=== PATIENT | male | born 1965 | race Caucasian/White ===

== ENCOUNTER 2018-02-27 13:02 | Inpatient (IN) | payer OTHER ==
[2018-02-27] VITALS (12 sets, daily range): BP systolic 117–137; BP diastolic 61–96
[~2018-02-27] VITALS: Ht 170.2 cm; Wt 81.0 kg
--- NOTE | 2018-02-27 13:08 | Emergency Room Report ---
History of Present Illness General Chief Complaint: Altered Level of Consciousness Source: Patient, EMS (Bony Aguilar MD) Present Illness HPI Patient is a 52-year-old male brought in by EMS after increased altered level consciousness. Patient reportedly had prior history of CVA. The patient was noted to be increasingly confused. The patient was brought in by EMS. He reports having increased generalized body aches and weakness. The patient is brought in from home after his called EMS (Bony Aguilar MD) Allergies: Coded Allergies: No Known Allergies (Unverified , 02/27/18) Patient History Past Medical History: see triage record Reviewed Nursing Documentation: PMH: Agreed; PSxH: Agreed (Bony Aguilar MD) Nursing Documentation-PMH Hx Diabetes: Yes (Bony Aguilar MD) Review of Systems All Other Systems: limited - by altered mental status (Bony Aguilar MD) Physical Exam Vital Signs Date Time Temp Pulse Resp B/P (MAP) Pulse Ox O2 Delivery O2 Flow Rate FiO2 02/27/18 12:56 98.1 110 18 110/60 98 Room Air Sp02 EP Interpretation: reviewed, normal General Appearance: alert, lethargic, Chronically Ill Head: atraumatic ENT: normal ENT inspection, hearing grossly normal, normal voice Neck: normal inspection, full range of motion, supple, no bony tend Respiratory: normal inspection, lungs clear, normal breath sounds, no respiratory distress, no retraction, no wheezing Gastrointestinal: normal inspection, normal bowel sounds, non tender, soft, no guarding, no hernia Genitourinary: no CVA tenderness Musculoskeletal: normal inspection, back normal, normal range of motion Neurologic: normal inspection, alert, responsive, speech normal, motor weakness , other - hippus Psychiatric: mood/affect normal Skin: normal inspection, normal color, no rash (Bony Aguilar MD) Procedures Critical Care Time Critical Care Time 70 minutes for multiple re-evaluations, critical findings concerning for end organ injury and possible life-threatening process not including any procedural time (Evonne Bermeo DO) Medical Decision Making Diagnostic Impression: Primary Impression: Altered level of consciousness Additional Impressions: Metabolic acidosis Pancreatitis ER Course patient presented for altered mental status. Differential diagnosis included but was not limited to ischemic stroke, subarachnoid hemorrhage, hypoglycemia, spinal cord injury, neurodegenerative disorder, urinary tract infection, hypoxemia.Because of complexity of patient's case laboratory testing and imaging studies were ordered. (Bony Aguilar MD) ER Course Please refer to the initial note for the initial exam and presentation Patient presents extremely ill Multiple critical findings including severe acidosis Glucose is elevated with concerns of DKA Patient's lipase levels also significantly elevated Further hydration is initiated CT head does not show any acute disease CT abdomen pelvis also does not show any acute disease Patient requiring higher level of care and ICU admission Multispecialty consultation is made and patient admitted in critical condition Labs Test 02/27/18 13:20 02/27/18 14:01 02/27/18 15:15 02/27/18 15:20 White Blood Count 7.5 K/UL (4.8-10.8) Red Blood Count 5.11 M/UL (4.70-6.10) Hemoglobin 16.0 G/DL (14.2-18.0) Hematocrit 47.6 % (42.0-52.0) Mean Corpuscular Volume 93 FL (80-99) Mean Corpuscular Hemoglobin 31.3 PG (27.0-31.0) Mean Corpuscular Hemoglobin Concent 33.6 G/DL (32.0-36.0) Red Cell Distribution Width 12.8 % (11.6-14.8) Platelet Count 91 K/UL (150-450) Mean Platelet Volume 8.4 FL (6.5-10.1) Neutrophils (%) (Auto) % (45.0-75.0) Lymphocytes (%) (Auto) % (20.0-45.0) Monocytes (%) (Auto) % (1.0-10.0) Eosinophils (%) (Auto) % (0.0-3.0) Basophils (%) (Auto) % (0.0-2.0) Differential Total Cells Counted 100 Neutrophils % (Manual) 74 % (45-75) Lymphocytes % (Manual) 11 % (20-45) Monocytes % (Manual) 15 % (1-10) Eosinophils % (Manual) 0 % (0-3) Basophils % (Manual) 0 % (0-2) Band Neutrophils 0 % (0-8) Platelet Estimate Decreased Platelet Morphology Normal Red Blood Cell Morphology Normal Prothrombin Time 11.2 SEC (9.30-11.50) Prothromb Time International Ratio 1.1 (0.9-1.1) Activated Partial Thromboplast Time 30 SEC (23-33) Sodium Level 125 MMOL/L (136-145) Potassium Level 4.9 MMOL/L (3.5-5.1) Chloride Level 88 MMOL/L (98-107) Carbon Dioxide Level 8 MMOL/L (21-32) Anion Gap 29 mmol/L (5-15) Blood Urea Nitrogen 52 mg/dL (7-18) Creatinine 1.6 MG/DL (0.55-1.30) Estimat Glomerular Filtration Rate 45.4 mL/min (>60) Glucose Level 319 MG/DL (74-106) Calcium Level 8.7 MG/DL (8.5-10.1) Total Bilirubin 1.5 MG/DL (0.2-1.0) Direct Bilirubin 0.3 MG/DL (0.0-0.3) Aspartate Amino Transf (AST/SGOT) 180 U/L (15-37) Alanine Aminotransferase (ALT/SGPT) 82 U/L (12-78) Alkaline Phosphatase 137 U/L (46-116) Ammonia < 10 umol/L (11-32) Troponin I 0.020 ng/mL (0.000-0.056) Total Protein 9.1 G/DL (6.4-8.2) Albumin 3.5 G/DL (3.4-5.0) Globulin 5.6 g/dL Albumin/Globulin Ratio 0.6 (1.0-2.7) Lipase > 2000 U/L (73-393) Thyroid Stimulating Hormone (TSH) 0.478 uiU/mL (0.358-3.740) Serum Alcohol < 3 mg/dL Arterial Blood pH 7.246 (7.350-7.450) Arterial Blood Partial Pressure CO2 17.3 mmHg (35.0-45.0) Arterial Blood Partial Pressure O2 108.2 mmHg (75.0-100.0) Arterial Blood HCO3 7.3 mmol/L (22.0-26.0) Arterial Blood Oxygen Saturation 97.9 % (95-100) Arterial Blood Base Excess -17.3 (-2-2) Andrew Test Positive Lactic Acid Level 0.70 mmol/L (0.4-2.0) Urine Color Yellow Urine Appearance Clear Urine pH 5 (4.5-8.0) Urine Specific [place] 1.020 (1.005-1.035) Urine Protein 3+ (NEGATIVE) Urine Glucose (UA) 4+ (NEGATIVE) Urine Ketones 4+ (NEGATIVE) Urine Blood 5+ (NEGATIVE) Urine Nitrite Negative (NEGATIVE) Urine Bilirubin Negative (NEGATIVE) Urine Urobilinogen 1 MG/DL (0.0-1.0) Urine Leukocyte Esterase Negative (NEGATIVE) Urine RBC 5-10 /HPF (0 - 0) Urine WBC 2-4 /HPF (0 - 0) Urine Squamous Epithelial Cells None /LPF (NONE/OCC) Urine Amorphous Sediment Few /LPF (NONE) Urine Bacteria Moderate /HPF (NONE) Urine Yeast Few /HPF (NONE) (Evonne Bermeo DO) Rhythm Strip Diag. Results EP Interpretation: yes Rate: 110 Rhythm: no PVC's, no ectopy, other - Sinus tach (Evonne Bermeo DO) Chest X-Ray Diagnostic Results Chest X-Ray Diagnostic Results : Chest X-Ray Ordered: Yes # of Views/Limited/Complete: 1 View Indication: Chest Pain EP Interpretation: Yes Interpretation: no consolidation, no effusion, no pneumothorax Impression: No acute disease Electronically Signed by: Evonne Bermeo DO (Evonne Bermeo DO) CT/MRI/US Diagnostic Results CT/MRI/US Diagnostic Results : Impression CT abdomen pelvisImpression: Very questionable slight prominence and indistinctness to the pancreatic head neck junction; of doubtful significance but could represent very early pancreatitis if real. Correlate with laboratory findings Enlarged fatty liver Equivocal mild bladder wall thickening, probably an artifact of under distention , could indicate cystitis if real. Correlate with clinical and laboratory findings Limited assessment of the GI tract, due to lack of enteric contrast administration Colonic diverticulosis Multiple ventral hernias, mostly containing fat, one containing the edge of the transverse colon. No evidence of obstruction or strangulation Incidental finding of splenic capsular calcifications, small fat-containing umbilical and right inguinal hernia CT headImpression: Cerebral volume loss, mild but somewhat advanced for patient' s age. Negative for acute intracranial bleed or mass effect (Evonne Bermeo DO) Last Vital Signs Date Time Temp Pulse Resp B/P (MAP) Pulse Ox O2 Delivery O2 Flow Rate FiO2 02/27/18 12:56 98.1 110 18 110/60 98 Room Air (Bony Aguilar MD) Status: improved (Evonne Bermeo DO) Disposition: ADMITTED INPATIENT Condition: Critical Bony Aguilar MD Feb 27, 2018 13:08 Evonne Bermeo DO Feb 27, 2018 17:48
[2018-02-27 13:44] LABS: HEMATOCRIT 47.6 % (42.0-52.0); MEAN CORPUSCULAR VOLUME 93 FL (80-99); PLATELET COUNT 91 K/UL (150-450); RED BLOOD COUNT 5.11 M/UL (4.70-6.10); RED CELL DISTRIBUTION WIDTH 12.8 % (11.6-14.8); WHITE BLOOD COUNT 7.5 K/UL (4.8-10.8)
--- NOTE | 2018-02-27 13:50 | Diagnostic Imaging Report ---
Indications: Altered level of consciousness Technique: Spiral acquisitions obtained through the brain. Angled axial and coronal 5 x 5 mm slices were reconstructed. Total dose length product 1432.39 mGycm. CTDI vol(s) 70.38 mGy. Dose reduction achieved using automated exposure control Comparison: None. Findings: There is age-related enlargement of the ventricles and to a lesser extent the extra-axial CSF spaces, somewhat advanced for age. No acute intercranial hemorrhage nor edema. No mass effect nor midline shift. Normal randolph-white differentiation. Intact calvarium. Visualized orbits and sinuses are unremarkable. Impression: Cerebral volume loss, mild but somewhat advanced for patient's age. Negative for acute intracranial bleed or mass effect The CT scanner at [facility] is accredited by the [employer] and the scans are performed using protocols designed to limit radiation exposure to as low as reasonably achievable to attain images of sufficient resolution adequate for diagnostic evaluation.
[2018-02-27 13:51] LABS: INR 1.1 (0.9-1.1)
[2018-02-27 13:55] LABS: AMMONIA < 10 umol/L (11-32)
[2018-02-27 14:10] LABS: ALANINE AMINOTRANSFERASE 82 U/L (12-78); ALBUMIN 3.5 G/DL (3.4-5.0); ALBUMIN/GLOBULIN RATIO 0.6 (1.0-2.7); ALKALINE PHOSPHATASE 137 U/L (46-116); ASPARTATE AMINO TRANSFERASE 180 U/L (15-37); BILIRUBIN,TOTAL 1.5 MG/DL (0.2-1.0); BLOOD UREA NITROGEN 52 mg/dL (7-18); CALCIUM 8.7 MG/DL (8.5-10.1); CHLORIDE 88 MMOL/L (98-107); CREATININE 1.6 MG/DL (0.55-1.30)
[2018-02-27 14:20] LABS: ANION GAP 29 mmol/L (5-15); CARBON DIOXIDE 8 MMOL/L (21-32); POTASSIUM 4.9 MMOL/L (3.5-5.1); SODIUM 125 MMOL/L (136-145)
[2018-02-27 14:23] LABS: BILIRUBIN,DIRECT 0.3 MG/DL (0.0-0.3)
[2018-02-27] MEDS ORDERED: Insulin Human Regular 100units/ml 3ml IV ONE (15:00)
[2018-02-27 15:49] LABS: APPEARANCE,URINE CLEAR; BILIRUBIN, URINE NEGATIVE (NEGATIVE); GLUCOSE, URINE (UA) 4+ (NEGATIVE); KETONES,URINE 4+ (NEGATIVE); LEUKOCYTE ESTERASE ,URINE NEGATIVE (NEGATIVE); NITRITE,URINE NEGATIVE (NEGATIVE); PH,URINE 5 (4.5-8.0); PROTEIN,URINE 3+ (NEGATIVE); UROBILINOGEN,URINE 1 MG/DL (0.0-1.0)
[2018-02-27 15:57] LABS: COLOR,URINE YELLOW
[2018-02-27] MEDS ORDERED: UNOBMED (15:57)
--- NOTE | 2018-02-27 16:18 | Diagnostic Imaging Report ---
Indication: Abdominal pain Technique: Spiral acquisitions obtained through the abdomen and pelvis. No oral contrast utilized, per emergency room physician request No IV contrast utilized, per referring physician request.. Multiplanar reconstructions were generated. Total dose length product 1166 mGycm. CTDIvol(s) 14.59,14.12 mGy. Dose reduction achieved using automated exposure control Comparison: None Findings: Lack of enteric contrast limits assessment of the GI tract. The appendix is normal. There is colonic diverticulosis. No evidence of acute diverticulitis. No small bowel distention. There is a broad-based ventral hernia into which protrudes the edge of the transverse colon. No evidence of associated strangulation or obstruction. A 2 other ventral hernias containing only fat. There is also small fat-containing umbilical hernia. There is a small fat-containing right inguinal hernia. Lack of IV contrast limits assessment of the solid organs. The liver is diffusely hypoattenuating, consistent with fatty change. It is also enlarged. The gallbladder, bile ducts are unremarkable. There is equivocal slight prominence to the pancreatic neck junction and slight increased attenuation of the immediate peripancreatic fat. No focal pancreatic abnormality. There are splenic capsular calcifications. The adrenals, kidneys are unremarkable. No renal or ureteral calculi, hydronephrosis, or hydroureter. The prostate and seminal vesicles are unremarkable except for some prostatic calcifications. The bladder is equivocally mildly thick-walled, probably an artifact of underdistention. The included lung bases are clear. The bones are unremarkable. Impression: Very questionable slight prominence and indistinctness to the pancreatic head neck junction; of doubtful significance but could represent very early pancreatitis if real. Correlate with laboratory findings Enlarged fatty liver Equivocal mild bladder wall thickening, probably an artifact of under distention, could indicate cystitis if real. Correlate with clinical and laboratory findings Limited assessment of the GI tract, due to lack of enteric contrast administration Colonic diverticulosis Multiple ventral hernias, mostly containing fat, one containing the edge of the transverse colon. No evidence of obstruction or strangulation Incidental finding of splenic capsular calcifications, small fat-containing umbilical and right inguinal hernia The CT scanner at [facility] is accredited by the [employer] and the scans are performed using protocols designed to limit radiation exposure to as low as reasonably achievable to attain images of sufficient resolution adequate for diagnostic evaluation.
[2018-02-27] MEDS ORDERED: Thiamine 100mg tab ORAL SCH (17:45)
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
[2018-02-27] MEDS ORDERED: LORazepam Inj 2mg/ml 1ml IV PRN (18:00)
[2018-02-27] MEDS ORDERED: Morphine Sulfate 2mg/ml Inj IVP PRN ×2 (18:00)
[2018-02-27] MEDS ORDERED: Morphine Sulfate 4mg/ml Inj (IV/IM USE ONLY) IVP PRN (18:00)
--- NOTE | 2018-02-27 18:50 | Diagnostic Imaging Report ---
EXAM: XR Chest, 1 View CLINICAL HISTORY: SOB TECHNIQUE: Frontal view of the chest. COMPARISON: No relevant prior studies available. FINDINGS: Lungs: Unremarkable. No consolidation. Pleural space: Unremarkable. No pneumothorax. Heart: Unremarkable. No cardiomegaly. Mediastinum: Unremarkable. Bones/joints: Unremarkable. IMPRESSION: Normal chest x-ray.
[2018-02-27] MEDS: D5NS 1,000 ML IV SCH (20:00)
[2018-02-27] MEDS ORDERED: Insulin Human Regular 100units/ml 3ml IV PRN ×2 (20:00)
[2018-02-27] MEDS: Insulin Rate Change 1 Each MISC PRN (22:03)
[2018-02-28] VITALS (24 sets, daily range): BP systolic 113–159; BP diastolic 69–98
[2018-02-28] MEDS: Insulin Rate Change 1 Each MISC PRN ×3 (01:19→22:03)
[2018-02-28] MEDS: D5NS 1,000 ML IV SCH ×4 (02:43→23:09)
[2018-02-28 05:52] LABS: AMYLASE 69 U/L (25-115)
[2018-02-28 06:02] LABS: ALANINE AMINOTRANSFERASE 62 U/L (12-78); ALBUMIN 2.7 G/DL (3.4-5.0); ALBUMIN/GLOBULIN RATIO 0.5 (1.0-2.7); ALKALINE PHOSPHATASE 110 U/L (46-116); ANION GAP 19 mmol/L (5-15); ASPARTATE AMINO TRANSFERASE 120 U/L (15-37); BILIRUBIN,TOTAL 1.2 MG/DL (0.2-1.0); BLOOD UREA NITROGEN 33 mg/dL (7-18); CALCIUM 8.3 MG/DL (8.5-10.1); CARBON DIOXIDE 13 MMOL/L (21-32); CHLORIDE 102 MMOL/L (98-107); CREATININE 1.4 MG/DL (0.55-1.30); POTASSIUM 3.2 MMOL/L (3.5-5.1); SODIUM 134 MMOL/L (136-145)
[2018-02-28 06:06] LABS: BILIRUBIN,DIRECT 0.5 MG/DL (0.0-0.3)
[2018-02-28 06:34] LABS: HEMOGLOBIN 13.1 G/DL (14.2-18.0); MEAN CORPUSCULAR VOLUME 92 FL (80-99); PLATELET COUNT 84 K/UL (150-450); RED BLOOD COUNT 4.11 M/UL (4.70-6.10); RED CELL DISTRIBUTION WIDTH 13.2 % (11.6-14.8); WHITE BLOOD COUNT 7.3 K/UL (4.8-10.8)
[2018-02-28 06:48] LABS: HEMATOCRIT 39.9 % (42.0-52.0)
[2018-02-28] MEDS: Pantoprazole Inj IV SCH (08:04)
--- NOTE | 2018-02-28 12:29 | Diagnostic Imaging Report ---
EXAM: US Abdomen Complete CLINICAL HISTORY: Abdominal tenderness TECHNIQUE: Real-time ultrasound of the abdomen (complete) with image documentation. COMPARISON: No relevant prior studies available. FINDINGS: Limitations: The choral teacher had a technically difficult exam due to uncooperative and confused patient which was constantly moving, as well as diffuse bowel gas. Liver: Diffusely echogenic liver, suggesting fatty infiltration. Gallbladder: Unremarkable. No gallstones. No wall thickening. No pericholecystic fluid. Common bile duct: Common bile duct diameter 3.4 mm. No stones. No dilation. Pancreas: Unremarkable as visualized. Pancreatic body and tail are obscured by bowel gas. Kidneys: Right kidney length 9.6 cm. Left kidney length 10.4 cm. Normal cortical thickness. No visible parenchymal lesions. No visible stones. No hydronephrosis. Spleen: Spleen diameter of 8.8 cm. Aorta: Unremarkable. Visualized portions appear unremarkable without evidence of aneurysm. Inferior vena cava: Unremarkable. IMPRESSION: No acute findings. Diffusely echogenic liver, suggesting fatty infiltration.
--- NOTE | 2018-02-28 12:59 | History and Physical Report ---
DATE OF ADMISSION: 02/27/2018 REASON FOR ADMISSION: Diabetic ketoacidosis, pancreatitis. HISTORY OF PRESENT ILLNESS: This is a 52-year-old confused male, brought in with altered mental status. The patient with history of prior CVA. The patient unable to give much in the way of history, but noted to be in diabetic ketoacidosis as well as pancreatitis. The patient was now started on IV insulin, IV hydration, and NPO due to elevated lipase and amylase. PAST MEDICAL HISTORY: As above. MEDICATIONS: Reviewed. ALLERGIES: Reviewed. SOCIAL HISTORY: Not fully known due to the patient's altered status. PHYSICAL EXAMINATION: GENERAL: This is a well-developed male, confused. VITAL SIGNS: Otherwise, stable. Blood pressure 136/76, pulse 95, respirations 20, and saturations 97%. HEENT: Otherwise negative. NECK: Supple. LUNGS: Clear overall CARDIAC: slightly tachycardic ABDOMEN: Minimally tender in the epigastrium, otherwise negative. No distention. EXTREMITIES: No edema. LABORATORY DATA: Otherwise reviewed. BUN 33, creatinine 1.4. Liver enzymes slightly elevated. C-reactive protein 12.2. White cell count 7.3 and hematocrit 39. IMPRESSION: 1. Diabetic ketoacidosis. 2. Severe protein-calorie malnutrition. 3. Evidence of pancreatitis. 4. Acute on chronic encephalopathy, not fully clarified. 5. Probable sepsis. 6. Abnormal liver enzymes. RECOMMENDATION: NPO. IV hydration, IV insulin, IV fluids, IV antibiotics, abdominal ultrasound. Monitor clinically. Monitor mental status and consider further evaluation and recommendation. Pending re-evaluation. Dontrell Rouse M.D. DR: MARCY JOB#: [id number] CC:
--- NOTE | 2018-02-28 15:48 | General Surgery Progress Note ---
General Surgery-Progress Note Subjective Symptoms: improved, pain absent Additional Comments no acute events. seems improved today Objective Last 24 Hour Vital Signs Date Time Temp Pulse Resp B/P (MAP) Pulse Ox O2 Delivery O2 Flow Rate FiO2 02/28/18 13:00 107 15 118/98 (105) 99 02/28/18 12:00 97.6 112 21 135/74 (94) 99 02/28/18 12:00 Room Air 02/28/18 11:00 111 15 130/80 (97) 100 02/28/18 10:00 112 17 133/80 (97) 100 02/28/18 09:00 97.8 95 20 136/76 (96) 97 02/28/18 08:00 Room Air 02/28/18 08:00 102 15 127/82 (97) 100 02/28/18 08:00 93 02/28/18 07:00 100 17 138/73 (94) 99 02/28/18 06:00 99 16 139/73 (95) 99 02/28/18 05:00 99 16 141/77 (98) 99 02/28/18 04:00 101 02/28/18 04:00 97.4 101 20 130/79 (96) 100 02/28/18 04:00 Room Air 02/28/18 03:00 102 14 141/77 (98) 100 02/28/18 02:00 106 18 130/88 (102) 100 02/28/18 01:00 109 18 115/76 (89) 100 02/28/18 00:00 Room Air 02/28/18 00:00 97.7 106 17 113/74 (87) 100 02/28/18 00:00 105 02/27/18 23:00 111 20 117/61 (79) 100 02/27/18 22:00 113 20 120/79 (93) 98 02/27/18 21:00 108 17 119/67 (84) 100 02/27/18 20:00 103 17 120/88 (99) 100 02/27/18 20:00 103 02/27/18 20:00 Room Air 02/27/18 19:10 Nasal Cannula 2.0 02/27/18 19:00 97.7 102 132/80 (97) 02/27/18 18:40 97.6 108 135/74 (94) 02/27/18 18:00 98 15 131/64 100 02/27/18 18:00 98.0 98 15 131/64 100 Room Air 02/27/18 17:00 112 24 123/96 97 Room Air 02/27/18 16:07 110 23 137/89 100 Room Air I&O Intake and Output 02/27/18 02/28/18 19:00 07:00 Intake Total 2000 ml 1657.62 ml Output Total 890 ml Balance 2000 ml 767.62 ml Intake Oral 0 ml IV Total 2000 ml 1657.62 ml Output Urine Total 890 ml # Voids 2 Dressing: other Wound: other Drains: other Cardiovascular: RSR Respiratory: clear Abdomen: soft, flat, non-tender, present bowel sounds Extremities: no tenderness, no cyanosis Laboratory Tests Test 02/28/18 05:00 02/28/18 06:45 White Blood Count 7.3 K/UL (4.8-10.8) Red Blood Count 4.11 M/UL (4.70-6.10) L Hemoglobin 13.1 G/DL (14.2-18.0) L Hematocrit 39.9 % (42.0-52.0) L Mean Corpuscular Volume 92 FL (80-99) Mean Corpuscular Hemoglobin 31.9 PG (27.0-31.0) H Mean Corpuscular Hemoglobin Concent 34.8 G/DL (32.0-36.0) Red Cell Distribution Width 13.2 % (11.6-14.8) Platelet Count 84 K/UL (150-450) L Mean Platelet Volume 6.7 FL (6.5-10.1) Neutrophils (%) (Auto) % (45.0-75.0) Lymphocytes (%) (Auto) % (20.0-45.0) Monocytes (%) (Auto) % (1.0-10.0) Eosinophils (%) (Auto) % (0.0-3.0) Basophils (%) (Auto) % (0.0-2.0) Differential Total Cells Counted 100 Neutrophils % (Manual) 72 % (45-75) Lymphocytes % (Manual) 12 % (20-45) L Monocytes % (Manual) 13 % (1-10) H Eosinophils % (Manual) 0 % (0-3) Basophils % (Manual) 0 % (0-2) Band Neutrophils 3 % (0-8) Platelet Estimate Decreased L Platelet Morphology Normal Red Blood Cell Morphology Normal Erythrocyte Sedimentation Rate 41 MM/HR (0-20) H Prothrombin Time 11.0 SEC (9.30-11.50) Prothromb Time International Ratio 1.0 (0.9-1.1) Activated Partial Thromboplast Time 30 SEC (23-33) Sodium Level 134 MMOL/L (136-145) L Potassium Level 3.2 MMOL/L (3.5-5.1) L Chloride Level 102 MMOL/L (98-107) Carbon Dioxide Level 13 MMOL/L (21-32) L Anion Gap 19 mmol/L (5-15) H Blood Urea Nitrogen 33 mg/dL (7-18) H Creatinine 1.4 MG/DL (0.55-1.30) H Estimat Glomerular Filtration Rate 53.0 mL/min (>60) Glucose Level 157 MG/DL (74-106) #H Hemoglobin A1c 9.8 % (4.3-6.0) H Calcium Level 8.3 MG/DL (8.5-10.1) L Total Bilirubin 1.2 MG/DL (0.2-1.0) H Direct Bilirubin 0.5 MG/DL (0.0-0.3) H Aspartate Amino Transf (AST/SGOT) 120 U/L (15-37) H Alanine Aminotransferase (ALT/SGPT) 62 U/L (12-78) Alkaline Phosphatase 110 U/L (46-116) C-Reactive Protein, Quantitative 12.2 mg/dL (0.00-0.90) H Total Protein 7.7 G/DL (6.4-8.2) Albumin 2.7 G/DL (3.4-5.0) L Globulin 5.0 g/dL Albumin/Globulin Ratio 0.5 (1.0-2.7) L Amylase Level 69 U/L (25-115) Lipase > 2000 U/L (73-393) H Arterial Blood pH 7.340 (7.350-7.450) Arterial Blood Partial Pressure CO2 27.7 mmHg (35.0-45.0) L Arterial Blood Partial Pressure O2 99.4 mmHg (75.0-100.0) Arterial Blood HCO3 14.6 mmol/L (22.0-26.0) *L Arterial Blood Oxygen Saturation 98.0 % (95-100) Arterial Blood Base Excess -9.6 (-2-2) *L Andrew Test Positive Plan Problems: (1) Acute sepsis Assessment & Plan: Noted to have dehydration metabolic acidosis UTI Pancreatitis Abnormal LFT's likely urosepsis -IV fluids -IV abx -ICU admission -trend labs will follow with recs. thank you (2) Pancreatitis Assessment & Plan: Pancreatitis possible med induced possible stone related possible EtOH related trend labs ivf Jeff Rose Feb 28, 2018 15:48
[2018-02-28] MEDS ORDERED: D5NS 1000ml IV ONE (15:58)
[2018-03-01] VITALS (22 sets, daily range): BP systolic 97–138; BP diastolic 69–87
[2018-03-01] MEDS: Insulin Rate Change 1 Each MISC PRN ×6 (02:09→07:06)
[2018-03-01] MEDS: D5NS 1,000 ML IV SCH ×2 (05:31→11:17)
[2018-03-01 06:27] LABS: HEMOGLOBIN 13.3 G/DL (14.2-18.0); MEAN CORPUSCULAR VOLUME 90 FL (80-99); PLATELET COUNT 118 K/UL (150-450); RED BLOOD COUNT 4.34 M/UL (4.70-6.10); RED CELL DISTRIBUTION WIDTH 12.6 % (11.6-14.8); WHITE BLOOD COUNT 6.5 K/UL (4.8-10.8)
[2018-03-01 06:50] LABS: ALANINE AMINOTRANSFERASE 46 U/L (12-78); ALBUMIN 2.5 G/DL (3.4-5.0); ALBUMIN/GLOBULIN RATIO 0.5 (1.0-2.7); ALKALINE PHOSPHATASE 100 U/L (46-116); AMYLASE 154 U/L (25-115); ANION GAP 14 mmol/L (5-15); ASPARTATE AMINO TRANSFERASE 79 U/L (15-37); BILIRUBIN,TOTAL 1.1 MG/DL (0.2-1.0); BLOOD UREA NITROGEN 15 mg/dL (7-18); CALCIUM 8.6 MG/DL (8.5-10.1); CARBON DIOXIDE 19 MMOL/L (21-32); CHLORIDE 104 MMOL/L (98-107); CREATININE 1.1 MG/DL (0.55-1.30); SODIUM 137 MMOL/L (136-145)
[2018-03-01 06:53] LABS: POTASSIUM 2.4 MMOL/L (3.5-5.1)
[2018-03-01 06:54] LABS: BILIRUBIN,DIRECT 0.4 MG/DL (0.0-0.3)
--- NOTE | 2018-03-01 08:12 | General Progress Note ---
Assessment/Plan Assessment/Plan IMPRESSION: 1. Diabetic ketoacidosis. 2. Severe protein-calorie malnutrition. 3. Evidence of pancreatitis. 4. Acute on chronic encephalopathy, not fully clarified. 5. Probable sepsis. 6. Abnormal liver enzymes. PLAN dc insulin drip ? start diet off antibiotics monitor blood sugars impression, plan, and exam edited and reviewed in detail care discussed with RN Subjective Allergies: Coded Allergies: No Known Allergies (Unverified , 02/27/18) Subjective care noted and reviewed Objective Last 24 Hour Vital Signs Date Time Temp Pulse Resp B/P (MAP) Pulse Ox O2 Delivery O2 Flow Rate FiO2 03/01/18 07:00 99 16 132/85 (101) 98 03/01/18 06:00 98 16 133/78 (96) 98 03/01/18 05:00 101 20 130/79 (96) 97 03/01/18 04:00 99.0 100 17 97/75 (82) 98 03/01/18 04:00 Room Air 03/01/18 04:00 101 03/01/18 03:00 103 18 122/84 (97) 98 03/01/18 02:00 103 18 136/71 (92) 98 03/01/18 01:00 109 18 124/79 (94) 99 03/01/18 00:00 105 03/01/18 00:00 98.7 107 19 113/74 (87) 98 03/01/18 00:00 Room Air 02/28/18 23:00 98 16 134/79 (97) 99 02/28/18 22:00 102 17 121/75 (90) 98 02/28/18 21:00 108 17 134/92 (106) 99 02/28/18 20:00 98.2 103 20 129/85 (100) 100 02/28/18 20:00 Room Air 02/28/18 20:00 99 02/28/18 19:00 105 17 128/91 (103) 99 02/28/18 18:00 102 17 121/91 (101) 98 02/28/18 17:00 100 17 118/69 (85) 98 02/28/18 16:00 Room Air 02/28/18 16:00 97.2 96 21 159/79 (105) 99 02/28/18 16:00 76 02/28/18 15:00 115 17 136/98 (111) 95 02/28/18 14:00 107 18 134/86 (102) 99 02/28/18 13:00 107 15 118/98 (105) 99 02/28/18 12:00 97.6 112 21 135/74 (94) 99 02/28/18 12:00 113 02/28/18 12:00 Room Air 02/28/18 11:00 111 15 130/80 (97) 100 02/28/18 10:00 112 17 133/80 (97) 100 02/28/18 09:00 97.8 95 20 136/76 (96) 97 Intake and Output 02/28/18 03/01/18 19:00 07:00 Intake Total 2011.0 ml 1314.88 ml Output Total 1830 ml 1730 ml Balance 181.0 ml -415.12 ml Intake Oral 0 ml 0 ml IV Total 2011.0 ml 1314.88 ml Output Urine Total 1830 ml 1730 ml Laboratory Tests 03/01/18 05:50: White Blood Count 6.5, Red Blood Count 4.34L, Hemoglobin 13.3L, Hematocrit 39.0L , Mean Corpuscular Volume 90, Mean Corpuscular Hemoglobin 30.7, Mean Corpuscular Hemoglobin Concent 34.2, Red Cell Distribution Width 12.6, Platelet Count 118L, Mean Platelet Volume 6.6, Neutrophils (%) (Auto) , Lymphocytes (%) ( Auto) , Monocytes (%) (Auto) , Eosinophils (%) (Auto) , Basophils (%) (Auto) , Differential Total Cells Counted 100, Neutrophils % (Manual) 73, Lymphocytes % ( Manual) 12L, Monocytes % (Manual) 10, Eosinophils % (Manual) 1, Basophils % ( Manual) 0, Band Neutrophils 4, Platelet Estimate DecreasedL, Platelet Morphology Normal, Red Blood Cell Morphology Normal, Sodium Level 137, Potassium Level 2.4*L, Chloride Level 104, Carbon Dioxide Level 19L, Anion Gap 14, Blood Urea Nitrogen 15, Creatinine 1.1, Estimat Glomerular Filtration Rate > 60, Glucose Level 200H, Calcium Level 8.6, Total Bilirubin 1.1H, Direct Bilirubin 0.4H, Aspartate Amino Transf (AST/SGOT) 79H, Alanine Aminotransferase (ALT/SGPT) 46, Alkaline Phosphatase 100, Total Protein 7.4, Albumin 2.5L, Globulin 4.9, Albumin/Globulin Ratio 0.5L, Amylase Level 154H, Lipase > 2000H Height (Feet): 5 Height (Inches): 7.00 Weight (Pounds): 177 Objective PHYSICAL EXAMINATION: GENERAL: This is a well-developed male, confused. HEENT: Otherwise negative. NECK: Supple. LUNGS: Clear overall CARDIAC: RRR ABDOMEN: tender in the epigastrium, otherwise negative. No distention. EXTREMITIES: No edema. Dontrell Rouse MD Mar 01, 2018 08:12
[2018-03-01] MEDS: Pantoprazole Inj IV SCH (08:33)
[2018-03-01] MEDS ORDERED: Potassium Chloride 60 MEQ in NS 1000ml 1,000 ML IV SCH (09:00)
[2018-03-01] MEDS ORDERED: Tubing IV Secondary IV ONE (09:44)
[2018-03-01] MEDS ORDERED: NS 275ml ONE (09:44)
[2018-03-01] MEDS ORDERED: D5NS 1000ml IV ONE (09:44)
[2018-03-01] MEDS: NovoLOG Insulin Flexpen SUBQ SCH ×2 (11:15→16:46)
[2018-03-01] MEDS ORDERED: NovoLOG Insulin Flexpen SUBQ SCH (11:50)
--- NOTE | 2018-03-01 11:55 | Cardiology Report ---
APPROVED REPORT EKG Measurement Heart [id number] Sinus tachycardia T wave abnormality, consider inferolateral ischemia Abnormal ECG
--- NOTE | 2018-03-01 18:00 | General Surgery Progress Note ---
General Surgery-Progress Note Subjective Additional Comments no acute events. somewhat improved. labs noted. lip still elevated Objective Last 24 Hour Vital Signs Date Time Temp Pulse Resp B/P (MAP) Pulse Ox O2 Delivery O2 Flow Rate FiO2 03/01/18 16:00 98 03/01/18 15:00 96 16 122/69 (86) 100 03/01/18 14:00 96 16 124/75 (91) 100 03/01/18 13:26 Room Air 03/01/18 13:00 103 16 127/87 (100) 100 03/01/18 12:00 Room Air 03/01/18 12:00 102 03/01/18 12:00 96 16 133/84 (100) 96 03/01/18 11:00 99 17 121/78 (92) 98 03/01/18 10:00 103 17 111/78 (89) 99 03/01/18 09:00 93 18 122/83 (96) 100 03/01/18 08:00 93 16 134/79 (97) 99 03/01/18 08:00 101 03/01/18 08:00 Room Air 03/01/18 07:00 99 16 132/85 (101) 98 03/01/18 06:00 98 16 133/78 (96) 98 03/01/18 05:00 101 20 130/79 (96) 97 03/01/18 04:00 99.0 100 17 97/75 (82) 98 03/01/18 04:00 Room Air 03/01/18 04:00 101 03/01/18 03:00 103 18 122/84 (97) 98 03/01/18 02:00 103 18 136/71 (92) 98 03/01/18 01:00 109 18 124/79 (94) 99 03/01/18 00:00 105 03/01/18 00:00 98.7 107 19 113/74 (87) 98 03/01/18 00:00 Room Air 02/28/18 23:00 98 16 134/79 (97) 99 02/28/18 22:00 102 17 121/75 (90) 98 02/28/18 21:00 108 17 134/92 (106) 99 02/28/18 20:00 98.2 103 20 129/85 (100) 100 02/28/18 20:00 Room Air 02/28/18 20:00 99 02/28/18 19:00 105 17 128/91 (103) 99 02/28/18 18:00 102 17 121/91 (101) 98 I&O Intake and Output 02/28/18 03/01/18 19:00 07:00 Intake Total 2011.0 ml 1314.88 ml Output Total 1830 ml 1730 ml Balance 181.0 ml -415.12 ml Intake Oral 0 ml 0 ml IV Total 2011.0 ml 1314.88 ml Output Urine Total 1830 ml 1730 ml Dressing: other Wound: other Drains: other Cardiovascular: RSR Respiratory: clear Abdomen: soft, flat, non-tender, present bowel sounds Extremities: no tenderness, no cyanosis Laboratory Tests Test 03/01/18 05:50 White Blood Count 6.5 K/UL (4.8-10.8) Red Blood Count 4.34 M/UL (4.70-6.10) L Hemoglobin 13.3 G/DL (14.2-18.0) L Hematocrit 39.0 % (42.0-52.0) L Mean Corpuscular Volume 90 FL (80-99) Mean Corpuscular Hemoglobin 30.7 PG (27.0-31.0) Mean Corpuscular Hemoglobin Concent 34.2 G/DL (32.0-36.0) Red Cell Distribution Width 12.6 % (11.6-14.8) Platelet Count 118 K/UL (150-450) L Mean Platelet Volume 6.6 FL (6.5-10.1) Neutrophils (%) (Auto) % (45.0-75.0) Lymphocytes (%) (Auto) % (20.0-45.0) Monocytes (%) (Auto) % (1.0-10.0) Eosinophils (%) (Auto) % (0.0-3.0) Basophils (%) (Auto) % (0.0-2.0) Differential Total Cells Counted 100 Neutrophils % (Manual) 73 % (45-75) Lymphocytes % (Manual) 12 % (20-45) L Monocytes % (Manual) 10 % (1-10) Eosinophils % (Manual) 1 % (0-3) Basophils % (Manual) 0 % (0-2) Band Neutrophils 4 % (0-8) Platelet Estimate Decreased L Platelet Morphology Normal Red Blood Cell Morphology Normal Sodium Level 137 MMOL/L (136-145) Potassium Level 2.4 MMOL/L (3.5-5.1) *L Chloride Level 104 MMOL/L (98-107) Carbon Dioxide Level 19 MMOL/L (21-32) L Anion Gap 14 mmol/L (5-15) Blood Urea Nitrogen 15 mg/dL (7-18) Creatinine 1.1 MG/DL (0.55-1.30) Estimat Glomerular Filtration Rate > 60 mL/min (>60) Glucose Level 200 MG/DL (74-106) H Calcium Level 8.6 MG/DL (8.5-10.1) Total Bilirubin 1.1 MG/DL (0.2-1.0) H Direct Bilirubin 0.4 MG/DL (0.0-0.3) H Aspartate Amino Transf (AST/SGOT) 79 U/L (15-37) H Alanine Aminotransferase (ALT/SGPT) 46 U/L (12-78) Alkaline Phosphatase 100 U/L (46-116) Total Protein 7.4 G/DL (6.4-8.2) Albumin 2.5 G/DL (3.4-5.0) L Globulin 4.9 g/dL Albumin/Globulin Ratio 0.5 (1.0-2.7) L Amylase Level 154 U/L (25-115) H Lipase > 2000 U/L (73-393) H Plan Problems: (1) Acute sepsis Assessment & Plan: Noted to have dehydration metabolic acidosis UTI Pancreatitis Abnormal LFT's likely urosepsis -IV fluids -IV abx -trend labs will follow with recs. thank you (2) Pancreatitis Assessment & Plan: Pancreatitis possible med induced possible stone related possible EtOH related trend labs [facility] Jeff Rose Mar 01, 2018 18:00
[2018-03-01] MEDS ORDERED: LORazepam Inj 2mg/ml 1ml IV PRN (22:00)
[2018-03-01] MEDS ORDERED: Morphine Sulfate 2mg/ml Inj IVP PRN ×2 (22:00)
[2018-03-01] MEDS ORDERED: Morphine Sulfate 4mg/ml Inj (IV/IM USE ONLY) IVP PRN (22:00)
[2018-03-02] VITALS: BP 148/93
[2018-03-02 04:00] VITALS: BP 135/66
[2018-03-02] MEDS: NovoLOG Insulin Flexpen SUBQ SCH ×4 (06:15→20:38)
[2018-03-02 07:09] LABS: HEMATOCRIT 38.9 % (42.0-52.0); HEMOGLOBIN 13.3 G/DL (14.2-18.0); MEAN CORPUSCULAR VOLUME 90 FL (80-99); PLATELET COUNT 153 K/UL (150-450); RED BLOOD COUNT 4.34 M/UL (4.70-6.10); RED CELL DISTRIBUTION WIDTH 12.6 % (11.6-14.8)
[2018-03-02 07:41] LABS: ALANINE AMINOTRANSFERASE 41 U/L (12-78); ALBUMIN 2.3 G/DL (3.4-5.0); ALBUMIN/GLOBULIN RATIO 0.5 (1.0-2.7); ALKALINE PHOSPHATASE 96 U/L (46-116); AMYLASE 175 U/L (25-115); ANION GAP 15 mmol/L (5-15); ASPARTATE AMINO TRANSFERASE 57 U/L (15-37); BLOOD UREA NITROGEN 11 mg/dL (7-18); CALCIUM 8.4 MG/DL (8.5-10.1); CARBON DIOXIDE 21 MMOL/L (21-32); CHLORIDE 101 MMOL/L (98-107); CREATININE 0.9 MG/DL (0.55-1.30); SODIUM 137 MMOL/L (136-145)
[2018-03-02 07:46] LABS: POTASSIUM 2.5 MMOL/L (3.5-5.1)
[2018-03-02 08:00] VITALS: BP 108/83
--- NOTE | 2018-03-02 08:03 | General Progress Note ---
Assessment/Plan Assessment/Plan IMPRESSION: 1. Diabetic ketoacidosis. 2. Severe protein-calorie malnutrition. 3. Evidence of pancreatitis, med induced 4. Acute on chronic encephalopathy, not fully clarified. 5. Probable sepsis. 6. Abnormal liver enzymes. PLAN off insulin drip tolerating diet off antibiotics monitor blood sugars and proceed with dc planning impression, plan, and exam edited and reviewed in detail care discussed with RN Subjective Allergies: Coded Allergies: No Known Allergies (Unverified , 02/27/18) Subjective care noted and reviewed K low Objective Last 24 Hour Vital Signs Date Time Temp Pulse Resp B/P (MAP) Pulse Ox O2 Delivery O2 Flow Rate FiO2 03/02/18 04:00 90 03/02/18 04:00 97.0 93 20 135/66 (89) 97 03/02/18 00:00 97.1 90 20 148/93 (111) 98 03/02/18 00:00 97 03/01/18 20:50 99.0 98 20 138/83 (101) 98 03/01/18 20:00 Room Air 03/01/18 20:00 99.1 98 16 134/70 (91) 98 03/01/18 20:00 98 03/01/18 19:00 93 16 128/79 (95) 100 03/01/18 18:00 94 16 127/78 (94) 100 03/01/18 17:00 98 16 120/74 (89) 100 03/01/18 16:00 97 16 129/77 (94) 100 03/01/18 16:00 98 03/01/18 16:00 Room Air 03/01/18 15:00 96 16 122/69 (86) 100 03/01/18 14:00 96 16 124/75 (91) 100 03/01/18 13:26 Room Air 03/01/18 13:00 103 16 127/87 (100) 100 03/01/18 12:00 Room Air 03/01/18 12:00 102 03/01/18 12:00 96 16 133/84 (100) 96 03/01/18 11:00 99 17 121/78 (92) 98 03/01/18 10:00 103 17 111/78 (89) 99 03/01/18 09:00 93 18 122/83 (96) 100 Intake and Output 03/01/18 03/02/18 19:00 07:00 Intake Total 1300 ml 875 ml Output Total 1302 ml 2000 ml Balance -2 ml -1125 ml Intake Oral 300 ml IV Total 1000 ml 875 ml Output Urine Total 1302 ml 2000 ml Laboratory Tests 03/02/18 06:00: White Blood Count 8.0, Red Blood Count 4.34L, Hemoglobin 13.3L, Hematocrit 38.9L , Mean Corpuscular Volume 90, Mean Corpuscular Hemoglobin 30.7, Mean Corpuscular Hemoglobin Concent 34.3, Red Cell Distribution Width 12.6, Platelet Count 153, Mean Platelet Volume 6.2L, Neutrophils (%) (Auto) , Lymphocytes (%) ( Auto) , Monocytes (%) (Auto) , Eosinophils (%) (Auto) , Basophils (%) (Auto) , Neutrophils % (Manual) [Pending], Lymphocytes % (Manual) [Pending], Platelet Estimate [Pending], Platelet Morphology [Pending], Sodium Level 137, Potassium Level 2.5*L, Chloride Level 101, Carbon Dioxide Level 21, Anion Gap 15, Blood Urea Nitrogen 11, Creatinine 0.9, Estimat Glomerular Filtration Rate > 60, Glucose Level 198H, Calcium Level 8.4L, Total Bilirubin 1.0, Aspartate Amino Transf (AST/SGOT) 57H, Alanine Aminotransferase (ALT/SGPT) 41, Alkaline Phosphatase 96, Total Protein 7.2, Albumin 2.3L, Globulin 4.9, Albumin/Globulin Ratio 0.5L, Amylase Level 175H, Lipase > 2000H Height (Feet): 5 Height (Inches): 7.00 Weight (Pounds): 173 Objective PHYSICAL EXAMINATION: GENERAL: This is a well-developed male, confused. HEENT: Otherwise negative. NECK: Supple. LUNGS: Clear overall CARDIAC: RRR ABDOMEN: tender in the epigastrium, otherwise negative. No distention. EXTREMITIES: No edema. Dontrell Rouse MD Mar 02, 2018 08:03
[2018-03-02] MEDS: Pantoprazole Inj IV SCH (09:00)
--- NOTE | 2018-03-02 11:59 | General Surgery Progress Note ---
General Surgery-Progress Note Subjective Symptoms: improved, pain absent, tolerating diet, passing flatus Additional Comments states he feels better. no n/v/f/c. downgraded Objective Last 24 Hour Vital Signs Date Time Temp Pulse Resp B/P (MAP) Pulse Ox O2 Delivery O2 Flow Rate FiO2 03/02/18 09:00 Room Air 03/02/18 08:00 98.7 20 108/83 (91) 99 03/02/18 08:00 110 03/02/18 04:00 90 03/02/18 04:00 97.0 93 20 135/66 (89) 97 03/02/18 00:00 97.1 90 20 148/93 (111) 98 03/02/18 00:00 97 03/01/18 20:50 99.0 98 20 138/83 (101) 98 03/01/18 20:00 Room Air 03/01/18 20:00 99.1 98 16 134/70 (91) 98 03/01/18 20:00 98 03/01/18 19:00 93 16 128/79 (95) 100 03/01/18 18:00 94 16 127/78 (94) 100 03/01/18 17:00 98 16 120/74 (89) 100 03/01/18 16:00 97 16 129/77 (94) 100 03/01/18 16:00 98 03/01/18 16:00 Room Air 03/01/18 15:00 96 16 122/69 (86) 100 03/01/18 14:00 96 16 124/75 (91) 100 03/01/18 13:26 Room Air 03/01/18 13:00 103 16 127/87 (100) 100 03/01/18 12:00 Room Air 03/01/18 12:00 102 03/01/18 12:00 96 16 133/84 (100) 96 I&O Intake and Output 03/01/18 03/02/18 19:00 07:00 Intake Total 1300 ml 875 ml Output Total 1302 ml 2000 ml Balance -2 ml -1125 ml Intake Oral 300 ml IV Total 1000 ml 875 ml Output Urine Total 1302 ml 2000 ml Drains: none Cardiovascular: RSR Respiratory: clear Abdomen: soft, distended, non-tender, present bowel sounds Extremities: no tenderness, no cyanosis Laboratory Tests Test 03/02/18 06:00 White Blood Count 8.0 K/UL (4.8-10.8) Red Blood Count 4.34 M/UL (4.70-6.10) L Hemoglobin 13.3 G/DL (14.2-18.0) L Hematocrit 38.9 % (42.0-52.0) L Mean Corpuscular Volume 90 FL (80-99) Mean Corpuscular Hemoglobin 30.7 PG (27.0-31.0) Mean Corpuscular Hemoglobin Concent 34.3 G/DL (32.0-36.0) Red Cell Distribution Width 12.6 % (11.6-14.8) Platelet Count 153 K/UL (150-450) Mean Platelet Volume 6.2 FL (6.5-10.1) L Neutrophils (%) (Auto) % (45.0-75.0) Lymphocytes (%) (Auto) % (20.0-45.0) Monocytes (%) (Auto) % (1.0-10.0) Eosinophils (%) (Auto) % (0.0-3.0) Basophils (%) (Auto) % (0.0-2.0) Differential Total Cells Counted 100 Neutrophils % (Manual) 68 % (45-75) Lymphocytes % (Manual) 11 % (20-45) L Monocytes % (Manual) 21 % (1-10) H Eosinophils % (Manual) 0 % (0-3) Basophils % (Manual) 0 % (0-2) Band Neutrophils 0 % (0-8) Platelet Estimate Adequate Platelet Morphology Normal Red Blood Cell Morphology Normal Sodium Level 137 MMOL/L (136-145) Potassium Level 2.5 MMOL/L (3.5-5.1) *L Chloride Level 101 MMOL/L (98-107) Carbon Dioxide Level 21 MMOL/L (21-32) Anion Gap 15 mmol/L (5-15) Blood Urea Nitrogen 11 mg/dL (7-18) Creatinine 0.9 MG/DL (0.55-1.30) Estimat Glomerular Filtration Rate > 60 mL/min (>60) Glucose Level 198 MG/DL (74-106) H Calcium Level 8.4 MG/DL (8.5-10.1) L Total Bilirubin 1.0 MG/DL (0.2-1.0) Aspartate Amino Transf (AST/SGOT) 57 U/L (15-37) H Alanine Aminotransferase (ALT/SGPT) 41 U/L (12-78) Alkaline Phosphatase 96 U/L (46-116) Total Protein 7.2 G/DL (6.4-8.2) Albumin 2.3 G/DL (3.4-5.0) L Globulin 4.9 g/dL Albumin/Globulin Ratio 0.5 (1.0-2.7) L Amylase Level 175 U/L (25-115) H Lipase > 2000 U/L (73-393) H Plan Problems: (1) Acute sepsis Assessment & Plan: Noted to have dehydration metabolic acidosis UTI Pancreatitis Abnormal LFT's likely urosepsis -IV fluids -IV abx -trend labs -diet as tolerated will follow with recs. thank you (2) Pancreatitis Assessment & Plan: Pancreatitis possible med induced possible stone related possible EtOH related lipase still elevated. clinically resolved trend labs ivf diet Jeff Rose Mar 02, 2018 11:59
[2018-03-02 12:00] VITALS: BP 134/85
[2018-03-02 16:00] VITALS: BP 136/77
[2018-03-02 20:00] VITALS: BP 124/86
[2018-03-03] VITALS: BP 143/56
[2018-03-03 04:00] VITALS: BP 151/95
[2018-03-03] MEDS: NovoLOG Insulin Flexpen SUBQ SCH ×4 (06:31→21:25)
[2018-03-03 07:59] LABS: HEMATOCRIT 41.8 % (42.0-52.0); HEMOGLOBIN 14.2 G/DL (14.2-18.0); MEAN CORPUSCULAR VOLUME 90 FL (80-99); PLATELET COUNT 237 K/UL (150-450); RED BLOOD COUNT 4.63 M/UL (4.70-6.10); RED CELL DISTRIBUTION WIDTH 12.8 % (11.6-14.8)
[2018-03-03 08:00] VITALS: BP 123/85
[2018-03-03 08:18] LABS: ALANINE AMINOTRANSFERASE 35 U/L (12-78); ALBUMIN 2.2 G/DL (3.4-5.0); ALBUMIN/GLOBULIN RATIO 0.4 (1.0-2.7); ALKALINE PHOSPHATASE 96 U/L (46-116); AMYLASE 220 U/L (25-115); ANION GAP 15 mmol/L (5-15); ASPARTATE AMINO TRANSFERASE 52 U/L (15-37); BILIRUBIN,TOTAL 0.9 MG/DL (0.2-1.0); BLOOD UREA NITROGEN 14 mg/dL (7-18); CALCIUM 8.5 MG/DL (8.5-10.1); CARBON DIOXIDE 20 MMOL/L (21-32); CHLORIDE 102 MMOL/L (98-107); CREATININE 0.7 MG/DL (0.55-1.30); POTASSIUM 3.3 MMOL/L (3.5-5.1); SODIUM 137 MMOL/L (136-145)
[2018-03-03] MEDS: Pantoprazole Inj IV SCH (08:48)
[2018-03-03] MEDS ORDERED: traMADol 50mg tab ORAL PRN (11:15)
[2018-03-03 12:00] VITALS: BP 149/85
--- NOTE | 2018-03-03 12:48 | GI Initial Consult Note ---
History of Present Illness General Date patient seen: Mar 03, 2018 Time patient seen: 12:40 Reason for Hospitalization: Altered Level of Consciousness Referring physician: ORA Reason for Consultation: PANCREATITIS Present Illness HPI Patient is a 52-year-old male brought in by EMS after increased altered level consciousness. Patient reportedly had prior history of CVA. The patient was noted to be increasingly confused. The patient was brought in by EMS. He reports having increased generalized body aches and weakness. The patient is brought in from home after his called EMS GI consulted for pancreatitis. Pt seen, awake A&Ox4 NAD [place] has complaint of abdominal pain after PO intake, currently on renal diet. Labs reviewed show consistent lipase levels over 2000 for the past few days. The patient has no history of endoscopy / colonoscopy. He denies any IVDA, tobacco or ETOH use. CT shows questionable indistinctness to the pancreatic head and junction. Abdominal US unremarkable. Home Meds Reported Medications Unable to Obtain Medications (UNABLE TO OBTAIN MEDS) 1 Ea Ea 02/27/18 Med list reviewed/reconciled: Yes Allergies: Coded Allergies: No Known Allergies (Unverified , 02/27/18) Patient History H Narrative IMPRESSION: 1. Diabetic ketoacidosis. 2. Severe protein-calorie malnutrition. 3. Evidence of pancreatitis. 4. Acute on chronic encephalopathy, not fully clarified. 5. Probable sepsis. 6. Abnormal liver enzymes. Social History: Denies: smoking, alcohol use, drug use, other Review of Systems All Other Systems: negative except mentioned in HPI Physical Exam Vital Signs Date Time Temp Pulse Resp B/P (MAP) Pulse Ox O2 Delivery O2 Flow Rate FiO2 02/27/18 12:56 98.1 110 18 110/60 98 Room Air 02/27/18 19:10 2.0 Sp02 EP Interpretation: reviewed, normal Labs Laboratory Tests Test 03/03/18 07:45 White Blood Count 8.0 K/UL (4.8-10.8) Red Blood Count 4.63 M/UL (4.70-6.10) L Hemoglobin 14.2 G/DL (14.2-18.0) Hematocrit 41.8 % (42.0-52.0) L Mean Corpuscular Volume 90 FL (80-99) Mean Corpuscular Hemoglobin 30.6 PG (27.0-31.0) Mean Corpuscular Hemoglobin Concent 33.9 G/DL (32.0-36.0) Red Cell Distribution Width 12.8 % (11.6-14.8) Platelet Count 237 K/UL (150-450) # Mean Platelet Volume 5.9 FL (6.5-10.1) L Neutrophils (%) (Auto) % (45.0-75.0) Lymphocytes (%) (Auto) % (20.0-45.0) Monocytes (%) (Auto) % (1.0-10.0) Eosinophils (%) (Auto) % (0.0-3.0) Basophils (%) (Auto) % (0.0-2.0) Differential Total Cells Counted 100 Neutrophils % (Manual) 46 % (45-75) Lymphocytes % (Manual) 28 % (20-45) Monocytes % (Manual) 20 % (1-10) H Eosinophils % (Manual) 3 % (0-3) Basophils % (Manual) 3 % (0-2) H Band Neutrophils 0 % (0-8) Platelet Estimate Adequate Platelet Morphology Normal Red Blood Cell Morphology Normal Sodium Level 137 MMOL/L (136-145) Potassium Level 3.3 MMOL/L (3.5-5.1) L Chloride Level 102 MMOL/L (98-107) Carbon Dioxide Level 20 MMOL/L (21-32) L Anion Gap 15 mmol/L (5-15) Blood Urea Nitrogen 14 mg/dL (7-18) Creatinine 0.7 MG/DL (0.55-1.30) Estimat Glomerular Filtration Rate > 60 mL/min (>60) Glucose Level 159 MG/DL (74-106) H Calcium Level 8.5 MG/DL (8.5-10.1) Total Bilirubin 0.9 MG/DL (0.2-1.0) Aspartate Amino Transf (AST/SGOT) 52 U/L (15-37) H Alanine Aminotransferase (ALT/SGPT) 35 U/L (12-78) Alkaline Phosphatase 96 U/L (46-116) Total Protein 7.6 G/DL (6.4-8.2) Albumin 2.2 G/DL (3.4-5.0) L Globulin 5.4 g/dL Albumin/Globulin Ratio 0.4 (1.0-2.7) L Amylase Level 220 U/L (25-115) H Lipase > 2000 U/L (73-393) H Carcinoembryonic Antigen Pending CA 19-9 Antigen Pending General Appearance: well appearing, no apparent distress, alert Head: normocephalic EENT: PERRL/EOMI, normal ENT inspection Neck: supple Respiratory: normal breath sounds, no respiratory distress Cardiovascular: normal rate Gastrointestinal: normal inspection, non tender, soft, normal bowel sounds, non -distended Rectal: deferred Genitourinary: deferred Musculoskeletal: normal inspection, back normal Neurologic: normal inspection, alert, oriented x3, responsive Psychiatric: normal inspection, judgement/insight normal, memory normal Skin: normal inspection, normal color, no rash, warm/dry, palpation normal, well hydrated Lymphatic: normal inspection, no adenopathy Current Medications Current Medications Medications (Trade) Dose Ordered Sig/Jatinder Route PRN Reason Start Time Stop Time Status Last Admin Dose Admin Acetaminophen (Tylenol) 325 mg Q6H PRN ORAL Mild Pain/Temp > 100.5 03/03/18 11:15 04/02/18 11:14 Dextrose (Dextrose 50%) 25 ml Q30M PRN IV Hypoglycemia 03/01/18 21:15 03/31/18 09:14 Dextrose (Dextrose 50%) 50 ml Q30M PRN IV Hypoglycemia 03/01/18 21:15 03/31/18 09:14 Insulin Aspart (NovoLOG) BEFORE MEALS AND HS SUBQ 03/02/18 06:30 03/31/18 11:29 03/03/18 11:20 Lorazepam (Ativan 2mg/ml 1ml) 0.5 mg Q4H PRN IV For Anxiety 03/01/18 22:00 03/06/18 17:59 Morphine Sulfate (Morphine Sulfate) 1 mg Q4H PRN IVP PAIN 1-3 03/01/18 22:00 03/06/18 17:59 Ondansetron HCl (Zofran) 4 mg Q6H PRN IVP Nausea & Vomiting 03/02/18 02:00 03/29/18 19:59 Pantoprazole (Protonix) 40 mg DAILY IV 03/02/18 09:00 03/30/18 08:59 03/03/18 08:48 Sodium Chloride 1,000 ml @ 100 mls/hr Q10H IV 03/01/18 21:15 03/31/18 18:14 03/03/18 03:15 Tramadol HCl (Ultram) 50 mg Q8H PRN ORAL Moderate Pain (Pain Scale 4-6) 03/03/18 11:15 03/10/18 11:14 GI: Plan Problems: (1) Altered level of consciousness (2) Metabolic acidosis (3) Altered mental state (4) Pancreatitis (5) Acute sepsis (6) Pancreatitis (7) Encephalopathy Plan CT AP reviewed >> Very questionable slight prominence and indistinctness to the pancreatic head neck junction; of doubtful significance but could represent very early pancreatitis if real. abdominal U/S reviewed >> no acute findings Given CTAP was performed without contract, the questionable prominence noted on the pancreatic head may of been from distortion. CA19, CEA pending. will add LEDA, IgG4 to r/o autoimmune pancreatitis add lipid panel tomorrow to r/o hypertriglyceridemia pancreatitis possible stone that passed given now normal bilirubin levels will consider EUS pending work up adv diet as tolerated IV hydration fu labs outpatient EGD/colonoscopy Discussed with Dr. Shay. Thank you for this patient referral, we will follow. The patient was seen and examined at bedside and all new and available data was reviewed in the patients chart. I agree with the above findings, impression and plan. (Patient seen earlier today. Signature stamp does not reflect patient encounter time.). - MD Kalli Gerard,[facility] [employer] OPERATOR Mar 03, 2018 12:48
--- NOTE | 2018-03-03 13:56 | General Progress Note ---
Assessment/Plan Assessment/Plan IMPRESSION: 1. Diabetic ketoacidosis. 2. Severe protein-calorie malnutrition. 3. Evidence of pancreatitis, med induced 4. Acute on chronic encephalopathy, not fully clarified. 5. Probable sepsis. 6. Abnormal liver enzymes. PLAN off insulin drip tolerating diet off antibiotics gi evaluation with elevated enzymes check CEA CA 19-9 monitor blood sugars and proceed with dc planning impression, plan, and exam edited and reviewed in detail care discussed with RN Subjective Allergies: Coded Allergies: No Known Allergies (Unverified , 02/27/18) Subjective care noted and reviewed K replaced Objective Last 24 Hour Vital Signs Date Time Temp Pulse Resp B/P (MAP) Pulse Ox O2 Delivery O2 Flow Rate FiO2 03/03/18 12:00 99.6 80 19 149/85 (106) 99 03/03/18 12:00 84 03/03/18 09:00 Room Air 03/03/18 08:00 99.4 85 19 123/85 (98) 99 03/03/18 08:00 86 03/03/18 04:00 99.1 80 19 151/95 (113) 98 03/03/18 04:00 80 03/03/18 00:00 87 03/03/18 00:00 99.8 92 18 143/56 (85) 98 03/02/18 21:00 Room Air 03/02/18 20:00 102 03/02/18 20:00 99.1 87 19 124/86 (99) 99 03/02/18 16:00 98.9 106 20 136/77 (96) 98 03/02/18 16:00 102 Intake and Output 03/02/18 03/03/18 19:00 07:00 Intake Total 240 ml Output Total 750 ml 300 ml Balance -510 ml -300 ml Intake Oral 240 ml Output Urine Total 750 ml 300 ml # Bowel Movements 1 Laboratory Tests 03/03/18 07:45: White Blood Count 8.0, Red Blood Count 4.63L, Hemoglobin 14.2, Hematocrit 41.8L , Mean Corpuscular Volume 90, Mean Corpuscular Hemoglobin 30.6, Mean Corpuscular Hemoglobin Concent 33.9, Red Cell Distribution Width 12.8, Platelet Count 237#, Mean Platelet Volume 5.9L, Neutrophils (%) (Auto) , Lymphocytes (%) (Auto) , Monocytes (%) (Auto) , Eosinophils (%) (Auto) , Basophils (%) (Auto) , Differential Total Cells Counted 100, Neutrophils % (Manual) 46, Lymphocytes % ( Manual) 28, Monocytes % (Manual) 20H, Eosinophils % (Manual) 3, Basophils % ( Manual) 3H, Band Neutrophils 0, Platelet Estimate Adequate, Platelet Morphology Normal, Red Blood Cell Morphology Normal, Sodium Level 137, Potassium Level 3.3L , Chloride Level 102, Carbon Dioxide Level 20L, Anion Gap 15, Blood Urea Nitrogen 14, Creatinine 0.7, Estimat Glomerular Filtration Rate > 60, Glucose Level 159H, Calcium Level 8.5, Total Bilirubin 0.9, Aspartate Amino Transf (AST/ SGOT) 52H, Alanine Aminotransferase (ALT/SGPT) 35, Alkaline Phosphatase 96, Total Protein 7.6, Albumin 2.2L, Globulin 5.4, Albumin/Globulin Ratio 0.4L, Amylase Level 220H, Lipase > 2000H, Carcinoembryonic Antigen [Pending], CA 19-9 Antigen [Pending] Height (Feet): 5 Height (Inches): 7.00 Weight (Pounds): 176 Objective PHYSICAL EXAMINATION: GENERAL: This is a well-developed male, confused. HEENT: Otherwise negative. NECK: Supple. LUNGS: Clear overall CARDIAC: RRR ABDOMEN: tender in the epigastrium, otherwise negative. No distention. EXTREMITIES: No edema. Dontrell Rouse MD Mar 03, 2018 13:56
[2018-03-03 16:00] VITALS: BP 137/85
[2018-03-03 20:00] VITALS: BP 119/77
[2018-03-04] VITALS: BP 136/91
[2018-03-04 04:00] VITALS: BP 149/84
[2018-03-04] MEDS: NovoLOG Insulin Flexpen SUBQ SCH ×4 (06:05→21:23)
[2018-03-04 07:43] LABS: HEMATOCRIT 37.6 % (42.0-52.0); HEMOGLOBIN 12.8 G/DL (14.2-18.0); MEAN CORPUSCULAR VOLUME 90 FL (80-99); PLATELET COUNT 289 K/UL (150-450); RED BLOOD COUNT 4.17 M/UL (4.70-6.10); RED CELL DISTRIBUTION WIDTH 13.2 % (11.6-14.8); WHITE BLOOD COUNT 7.6 K/UL (4.8-10.8)
[2018-03-04 08:00] VITALS: BP 129/90
[2018-03-04 08:15] LABS: AMYLASE 209 U/L (25-115); ANION GAP 14 mmol/L (5-15); BLOOD UREA NITROGEN 12 mg/dL (7-18); CARBON DIOXIDE 22 MMOL/L (21-32); CHLORIDE 102 MMOL/L (98-107); CHOLESTEROL 120 MG/DL (< 200); CREATININE 0.6 MG/DL (0.55-1.30); HDL CHOLESTEROL 22 MG/DL (40-60); SODIUM 138 MMOL/L (136-145); TRIGLYCERIDES 104 MG/DL (30-150)
[2018-03-04 08:23] LABS: POTASSIUM 2.4 MMOL/L (3.5-5.1)
[2018-03-04] MEDS ORDERED: Isovue-300 100ml vial INJ PRN (09:15)
--- NOTE | 2018-03-04 10:40 | GI Progress Note ---
Assessment/Plan Problems: (1) Altered mental state ICD Codes: R41.82 - Altered mental status, unspecified SNOMED: 954283690 (2) Encephalopathy ICD Codes: G93.40 - Encephalopathy, unspecified SNOMED: 99787330 (3) Pancreatitis ICD Codes: K85.90 - Acute pancreatitis without necrosis or infection, unspecified SNOMED: 70076943 (4) Altered level of consciousness ICD Codes: R40.4 - Transient alteration of awareness SNOMED: 0751111 (5) Metabolic acidosis ICD Codes: E87.2 - Acidosis SNOMED: 77621511 (6) Acute sepsis ICD Codes: A41.9 - Sepsis, unspecified organism SNOMED: 75315469 (7) Pancreatitis ICD Codes: K85.90 - Acute pancreatitis without necrosis or infection, unspecified SNOMED: 20948888 Status: stable Status Narrative Discussed with Dr. Shay. Assessment/Plan CT AP reviewed >> Very questionable slight prominence and indistinctness to the pancreatic head neck junction; of doubtful significance but could represent very early pancreatitis if real. abdominal U/S reviewed >> no acute findings CA19, CEA elevation lipid panel WNL Given CTAP was performed without contract, the questionable prominence noted on the pancreatic head may of been from distortion, order fu CT with contrast. will add LEDA, IgG4 to r/o autoimmune pancreatitis add lipid panel tomorrow to r/o hypertriglyceridemia pancreatitis possible stone that passed given now normal bilirubin levels will consider EUS pending work up adv diet as tolerated IV hydration fu labs outpatient EGD/colonoscopy The patient was seen and examined at bedside and all new and available data was reviewed in the patients chart. I agree with the above findings, impression and plan. (Patient seen earlier today. Signature stamp does not reflect patient encounter time.). - Mikel Shay MD Subjective Gastrointestinal/Abdominal: Reports: no symptoms Objective Last 24 Hour Vital Signs Date Time Temp Pulse Resp B/P (MAP) Pulse Ox O2 Delivery O2 Flow Rate FiO2 03/04/18 08:20 Room Air 03/04/18 08:00 98.1 92 21 129/90 (103) 97 03/04/18 07:58 93 03/04/18 04:00 80 03/04/18 04:00 98.7 90 18 149/84 (105) 97 03/04/18 00:00 98.1 76 19 136/91 (106) 98 03/04/18 00:00 77 03/03/18 21:00 Room Air 03/03/18 20:00 97 03/03/18 20:00 99.1 86 18 119/77 (91) 99 03/03/18 16:00 73 03/03/18 16:00 99.8 88 19 137/85 (102) 97 03/03/18 13:44 99.3 03/03/18 12:00 99.6 80 19 149/85 (106) 99 03/03/18 12:00 84 Intake and Output 03/03/18 03/04/18 18:59 06:59 Intake Total 360 ml Output Total 1000 ml 800 ml Balance -640 ml -800 ml Intake Oral 360 ml Output Urine Total 1000 ml 800 ml # Voids 2 # Bowel Movements 4 3 Laboratory Tests Test 03/04/18 06:30 White Blood Count 7.6 K/UL (4.8-10.8) Red Blood Count 4.17 M/UL (4.70-6.10) L Hemoglobin 12.8 G/DL (14.2-18.0) L Hematocrit 37.6 % (42.0-52.0) L Mean Corpuscular Volume 90 FL (80-99) Mean Corpuscular Hemoglobin 30.7 PG (27.0-31.0) Mean Corpuscular Hemoglobin Concent 34.0 G/DL (32.0-36.0) Red Cell Distribution Width 13.2 % (11.6-14.8) Platelet Count 289 K/UL (150-450) Mean Platelet Volume 5.8 FL (6.5-10.1) L Neutrophils (%) (Auto) % (45.0-75.0) Lymphocytes (%) (Auto) % (20.0-45.0) Monocytes (%) (Auto) % (1.0-10.0) Eosinophils (%) (Auto) % (0.0-3.0) Basophils (%) (Auto) % (0.0-2.0) Differential Total Cells Counted 100 Neutrophils % (Manual) 63 % (45-75) Lymphocytes % (Manual) 18 % (20-45) L Monocytes % (Manual) 14 % (1-10) H Eosinophils % (Manual) 5 % (0-3) H Basophils % (Manual) 0 % (0-2) Band Neutrophils 0 % (0-8) Platelet Estimate Adequate Platelet Morphology Normal Sodium Level 138 MMOL/L (136-145) Potassium Level 2.4 MMOL/L (3.5-5.1) *L Chloride Level 102 MMOL/L (98-107) Carbon Dioxide Level 22 MMOL/L (21-32) Anion Gap 14 mmol/L (5-15) Blood Urea Nitrogen 12 mg/dL (7-18) Creatinine 0.6 MG/DL (0.55-1.30) Estimat Glomerular Filtration Rate > 60 mL/min (>60) Glucose Level 152 MG/DL (74-106) H Calcium Level 8.0 MG/DL (8.5-10.1) L Triglycerides Level 104 MG/DL (30-150) Cholesterol Level 120 MG/DL (< 200) LDL Cholesterol 90 mg/dL (<100) HDL Cholesterol 22 MG/DL (40-60) L Cholesterol/HDL Ratio 5.5 (3.3-4.4) H Amylase Level 209 U/L (25-115) H Lipase > 2000 U/L (73-393) H Immunoglobulin G Pending Immunoglobulin G1 Pending Immunoglobulin G2 Pending Immunoglobulin G3 Pending Immunoglobulin G4 Pending Anti-Nuclear Antibody Screen Pending Height (Feet): 5 Height (Inches): 7.00 Weight (Pounds): 178 General Appearance: WD/WN, no apparent distress, alert Cardiovascular: normal rate Respiratory/Chest: normal breath sounds, no respiratory distress Abdominal Exam: normal bowel sounds, non tender, soft Extremities: normal range of motion, non-tender Ann Mahan NP Mar 04, 2018 10:40
--- NOTE | 2018-03-04 11:08 | Consultation ---
Consult Note Consult Note HEMATOLOGY-ONCOLOGY CONSULTATION REFERRING PHYSICIAN: DATE OF CONSULT: 03/03/2018 REASON FOR CONSULT: Elevated tumor markers HISTORY OF PRESENT ILLNESS: This is a 52-year-old confused male, brought in with altered mental status. The patient with history of prior CVA. The patient unable to give much in the way of history, but noted to be in diabetic ketoacidosis as well as pancreatitis. The patient has been started on IV insulin , IV hydration, and NPO due to elevated lipase and amylase. Hematology services consulted for the evaluation of elevated tumor markers. Labs and imaging have been reviewed. PAST MEDICAL HISTORY: As above. PAST SURGICAL HISTORY: Unknown ALLERGIES: Reviewed. SOCIAL HISTORY: Not fully known due to the patient's altered status. FAMILY HISTORY: Noncontributory ROS: Unable to obtain PHYSICAL EXAMINATION: GENERAL: This is a well-developed male, confused. VITAL SIGNS: Have been reviewed. HEENT: Otherwise negative. NECK: Supple. LUNGS: Clear overall CARDIAC: slightly tachycardic ABDOMEN: Minimally tender in the epigastrium, otherwise negative. No distention. EXTREMITIES: No edema. Laboratory Tests Test 03/04/18 06:30 White Blood Count 7.6 K/UL (4.8-10.8) Red Blood Count 4.17 M/UL (4.70-6.10) L Hemoglobin 12.8 G/DL (14.2-18.0) L Hematocrit 37.6 % (42.0-52.0) L Mean Corpuscular Volume 90 FL (80-99) Mean Corpuscular Hemoglobin 30.7 PG (27.0-31.0) Mean Corpuscular Hemoglobin Concent 34.0 G/DL (32.0-36.0) Red Cell Distribution Width 13.2 % (11.6-14.8) Platelet Count 289 K/UL (150-450) Mean Platelet Volume 5.8 FL (6.5-10.1) L Neutrophils (%) (Auto) % (45.0-75.0) Lymphocytes (%) (Auto) % (20.0-45.0) Monocytes (%) (Auto) % (1.0-10.0) Eosinophils (%) (Auto) % (0.0-3.0) Basophils (%) (Auto) % (0.0-2.0) Differential Total Cells Counted 100 Neutrophils % (Manual) 63 % (45-75) Lymphocytes % (Manual) 18 % (20-45) L Monocytes % (Manual) 14 % (1-10) H Eosinophils % (Manual) 5 % (0-3) H Basophils % (Manual) 0 % (0-2) Band Neutrophils 0 % (0-8) Platelet Estimate Adequate Platelet Morphology Normal Sodium Level 138 MMOL/L (136-145) Potassium Level 2.4 MMOL/L (3.5-5.1) *L Chloride Level 102 MMOL/L (98-107) Carbon Dioxide Level 22 MMOL/L (21-32) Anion Gap 14 mmol/L (5-15) Blood Urea Nitrogen 12 mg/dL (7-18) Creatinine 0.6 MG/DL (0.55-1.30) Estimat Glomerular Filtration Rate > 60 mL/min (>60) Glucose Level 152 MG/DL (74-106) H Calcium Level 8.0 MG/DL (8.5-10.1) L Triglycerides Level 104 MG/DL (30-150) Cholesterol Level 120 MG/DL (< 200) LDL Cholesterol 90 mg/dL (<100) HDL Cholesterol 22 MG/DL (40-60) L Cholesterol/HDL Ratio 5.5 (3.3-4.4) H Amylase Level 209 U/L (25-115) H Lipase > 2000 U/L (73-393) H Immunoglobulin G Pending Immunoglobulin G1 Pending Immunoglobulin G2 Pending Immunoglobulin G3 Pending Immunoglobulin G4 Pending Anti-Nuclear Antibody Screen Pending Current Medications Medications (Trade) Dose Ordered Sig/Jatinder Route PRN Reason Start Time Stop Time Status Last Admin Dose Admin Acetaminophen (Tylenol) 325 mg Q6H PRN ORAL Mild Pain/Temp > 100.5 03/03/18 11:15 04/02/18 11:14 03/03/18 13:14 Barium Sulfate (Readi-Cat 2) 450 ml NOW PRN ORAL Radiology Procedure 03/04/18 09:15 03/06/18 09:12 Dextrose (Dextrose 50%) 25 ml Q30M PRN IV Hypoglycemia 03/01/18 21:15 03/31/18 09:14 Dextrose (Dextrose 50%) 50 ml Q30M PRN IV Hypoglycemia 03/01/18 21:15 03/31/18 09:14 Insulin Aspart (NovoLOG) BEFORE MEALS AND HS SUBQ 03/02/18 06:30 03/31/18 11:29 03/04/18 06:05 Iopamidol (Isovue-300 100ml) 100 ml NOW PRN INJ Radiology Procedure 03/04/18 09:15 03/04/18 23:59 Lorazepam (Ativan 2mg/ml 1ml) 0.5 mg Q4H PRN IV For Anxiety 03/01/18 22:00 03/06/18 17:59 Morphine Sulfate (Morphine Sulfate) 1 mg Q4H PRN IVP PAIN 1-3 03/01/18 22:00 03/06/18 17:59 03/04/18 10:09 Ondansetron HCl (Zofran) 4 mg Q6H PRN IVP Nausea & Vomiting 03/02/18 02:00 03/29/18 19:59 Pantoprazole (Protonix) 40 mg ACBREAKFAST ORAL 03/04/18 06:30 04/03/18 06:29 03/04/18 06:01 Potassium Chloride 100 ml @ 100 mls/hr Q1H IVPB 03/04/18 09:00 03/04/18 12:59 03/04/18 09:31 Potassium Chloride (K-Dur) 40 meq Q4H ORAL 03/04/18 09:00 03/04/18 13:01 03/04/18 09:30 Tramadol HCl (Ultram) 50 mg Q8H PRN ORAL Moderate Pain (Pain Scale 4-6) 03/03/18 11:15 03/10/18 11:14 ASSESSMENT AND RECOMMENDATIONS # Elevated tumor markers. CEA at 5.6, CA19-9 at 71. # Thrombocytopenia. Plt count of 84k on admission. Currently at 237 --> Improved/Resolved. # Anemia, mild. Current hgb > 13, no w/u required at this time. --> Cont to monitor for stability. # Diabetic ketoacidosis. --> Cont to monitor BS levels. --> Cont on insulin # Severe protein-calorie malnutrition. # Pancreatitis. GI is following, appreciate recs --> Outpatient EGD/Colonoscopy GREATLY APPRECIATE CONSULTATION. Kei Son MD Mar 04, 2018 11:08
[2018-03-04 12:00] VITALS: BP 129/79
--- NOTE | 2018-03-04 13:22 | General Surgery Progress Note ---
General Surgery-Progress Note Subjective Additional Comments elevated tumor markers. overall okay. labs noted Objective Last 24 Hour Vital Signs Date Time Temp Pulse Resp B/P (MAP) Pulse Ox O2 Delivery O2 Flow Rate FiO2 03/04/18 12:00 98.8 83 19 129/79 (96) 97 03/04/18 10:39 98.1 03/04/18 08:20 Room Air 03/04/18 08:00 98.1 92 21 129/90 (103) 97 03/04/18 07:58 93 03/04/18 04:00 80 03/04/18 04:00 98.7 90 18 149/84 (105) 97 03/04/18 00:00 98.1 76 19 136/91 (106) 98 03/04/18 00:00 77 03/03/18 21:00 Room Air 03/03/18 20:00 97 03/03/18 20:00 99.1 86 18 119/77 (91) 99 03/03/18 16:00 73 03/03/18 16:00 99.8 88 19 137/85 (102) 97 03/03/18 13:44 99.3 I&O Intake and Output 03/03/18 03/04/18 19:00 07:00 Intake Total 360 ml 700 ml Output Total 1000 ml 800 ml Balance -640 ml -100 ml Intake Oral 360 ml IV Total 700 ml Output Urine Total 1000 ml 800 ml # Voids 2 # Bowel Movements 4 3 Dressing: other Wound: other Drains: other Cardiovascular: RSR Respiratory: clear Abdomen: soft, flat, non-tender, present bowel sounds Extremities: no cyanosis Laboratory Tests Test 03/04/18 06:30 White Blood Count 7.6 K/UL (4.8-10.8) Red Blood Count 4.17 M/UL (4.70-6.10) L Hemoglobin 12.8 G/DL (14.2-18.0) L Hematocrit 37.6 % (42.0-52.0) L Mean Corpuscular Volume 90 FL (80-99) Mean Corpuscular Hemoglobin 30.7 PG (27.0-31.0) Mean Corpuscular Hemoglobin Concent 34.0 G/DL (32.0-36.0) Red Cell Distribution Width 13.2 % (11.6-14.8) Platelet Count 289 K/UL (150-450) Mean Platelet Volume 5.8 FL (6.5-10.1) L Neutrophils (%) (Auto) % (45.0-75.0) Lymphocytes (%) (Auto) % (20.0-45.0) Monocytes (%) (Auto) % (1.0-10.0) Eosinophils (%) (Auto) % (0.0-3.0) Basophils (%) (Auto) % (0.0-2.0) Differential Total Cells Counted 100 Neutrophils % (Manual) 63 % (45-75) Lymphocytes % (Manual) 18 % (20-45) L Monocytes % (Manual) 14 % (1-10) H Eosinophils % (Manual) 5 % (0-3) H Basophils % (Manual) 0 % (0-2) Band Neutrophils 0 % (0-8) Platelet Estimate Adequate Platelet Morphology Normal Sodium Level 138 MMOL/L (136-145) Potassium Level 2.4 MMOL/L (3.5-5.1) *L Chloride Level 102 MMOL/L (98-107) Carbon Dioxide Level 22 MMOL/L (21-32) Anion Gap 14 mmol/L (5-15) Blood Urea Nitrogen 12 mg/dL (7-18) Creatinine 0.6 MG/DL (0.55-1.30) Estimat Glomerular Filtration Rate > 60 mL/min (>60) Glucose Level 152 MG/DL (74-106) H Calcium Level 8.0 MG/DL (8.5-10.1) L Triglycerides Level 104 MG/DL (30-150) Cholesterol Level 120 MG/DL (< 200) LDL Cholesterol 90 mg/dL (<100) HDL Cholesterol 22 MG/DL (40-60) L Cholesterol/HDL Ratio 5.5 (3.3-4.4) H Amylase Level 209 U/L (25-115) H Lipase > 2000 U/L (73-393) H Immunoglobulin G Pending Immunoglobulin G1 Pending Immunoglobulin G2 Pending Immunoglobulin G3 Pending Immunoglobulin G4 Pending Anti-Nuclear Antibody Screen Pending Plan Problems: (1) Acute sepsis Assessment & Plan: Noted to have dehydration metabolic acidosis UTI Pancreatitis Abnormal LFT's likely urosepsis -IV fluids -IV abx -trend labs -diet as tolerated will follow with recs. thank you (2) Pancreatitis Assessment & Plan: Pancreatitis possible med induced possible stone related possible EtOH related lipase still elevated. clinically resolved trend labs ivf diet Jeff Rose Mar 04, 2018 13:22
--- NOTE | 2018-03-04 14:25 | Pulmonology Progress Note ---
Assessment/Plan Assessment/Plan Pulmonary Progress Note Assessment/Plan IMPRESSION: 1. Diabetic ketoacidosis. 2. Severe protein-calorie malnutrition. 3. Evidence of pancreatitis, med induced 4. Acute on chronic encephalopathy, not fully clarified. 5. Probable sepsis. 6. Abnormal liver enzymes. PLAN On insulin SS tolerating diet off antibiotics gi evaluation with elevated enzymes check CEA CA 19-9 monitor blood sugars and proceed with dc planning impression, plan, and exam edited and reviewed in detail care discussed with RN Subjective Allergies: Coded Allergies: No Known Allergies (Unverified , 02/27/18) Subjective care noted and reviewed K replaced Objective Vital Signs Noted PHYSICAL EXAMINATION: GENERAL: This is a well-developed male, confused. HEENT: Otherwise negative. NECK: Supple. LUNGS: Clear overall CARDIAC: RRR ABDOMEN: tender in the epigastrium, otherwise negative. No distention. EXTREMITIES: No edema. Laboratory Tests 03/03/18 07:45: White Blood Count 8.0, Red Blood Count 4.63L, Hemoglobin 14.2, Hematocrit 41.8L , Mean Corpuscular Volume 90, Mean Corpuscular Hemoglobin 30.6, Mean Corpuscular Hemoglobin Concent 33.9, Red Cell Distribution Width 12.8, Platelet Count 237#, Mean Platelet Volume 5.9L, Neutrophils (%) (Auto) , Lymphocytes (%) (Auto) , Monocytes (%) (Auto) , Eosinophils (%) (Auto) , Basophils (%) (Auto) , Differential Total Cells Counted 100, Neutrophils % (Manual) 46, Lymphocytes % ( Manual) 28, Monocytes % (Manual) 20H, Eosinophils % (Manual) 3, Basophils % ( Manual) 3H, Band Neutrophils 0, Platelet Estimate Adequate, Platelet Morphology Normal, Red Blood Cell Morphology Normal, Sodium Level 137, Potassium Level 3.3L , Chloride Level 102, Carbon Dioxide Level 20L, Anion Gap 15, Blood Urea Nitrogen 14, Creatinine 0.7, Estimat Glomerular Filtration Rate > 60, Glucose Level 159H, Calcium Level 8.5, Total Bilirubin 0.9, Aspartate Amino Transf (AST/ SGOT) 52H, Alanine Aminotransferase (ALT/SGPT) 35, Alkaline Phosphatase 96, Total Protein 7.6, Albumin 2.2L, Globulin 5.4, Albumin/Globulin Ratio 0.4L, Amylase Level 220H, Lipase > 2000H, Carcinoembryonic Antigen [Pending], CA 19-9 Antigen [Pending] Height (Feet): 5 Height (Inches): 7.00 Weight (Pounds): 176 Objective Subjective ROS Limited/Unobtainable: No Allergies: Coded Allergies: No Known Allergies (Unverified , 02/27/18) Objective Last 24 Hour Vital Signs Date Time Temp Pulse Resp B/P (MAP) Pulse Ox O2 Delivery O2 Flow Rate FiO2 03/04/18 12:00 98.8 83 19 129/79 (96) 97 03/04/18 10:39 98.1 03/04/18 08:20 Room Air 03/04/18 08:00 98.1 92 21 129/90 (103) 97 03/04/18 07:58 93 03/04/18 04:00 80 03/04/18 04:00 98.7 90 18 149/84 (105) 97 03/04/18 00:00 98.1 76 19 136/91 (106) 98 03/04/18 00:00 77 03/03/18 21:00 Room Air 03/03/18 20:00 97 03/03/18 20:00 99.1 86 18 119/77 (91) 99 03/03/18 16:00 73 03/03/18 16:00 99.8 88 19 137/85 (102) 97 Intake and Output 03/03/18 03/04/18 19:00 07:00 Intake Total 360 ml 700 ml Output Total 1000 ml 800 ml Balance -640 ml -100 ml Intake Oral 360 ml IV Total 700 ml Output Urine Total 1000 ml 800 ml # Voids 2 # Bowel Movements 4 3 Laboratory Tests 03/04/18 06:30: White Blood Count 7.6, Red Blood Count 4.17L, Hemoglobin 12.8L, Hematocrit 37.6L , Mean Corpuscular Volume 90, Mean Corpuscular Hemoglobin 30.7, Mean Corpuscular Hemoglobin Concent 34.0, Red Cell Distribution Width 13.2, Platelet Count 289, Mean Platelet Volume 5.8L, Neutrophils (%) (Auto) , Lymphocytes (%) ( Auto) , Monocytes (%) (Auto) , Eosinophils (%) (Auto) , Basophils (%) (Auto) , Differential Total Cells Counted 100, Neutrophils % (Manual) 63, Lymphocytes % ( Manual) 18L, Monocytes % (Manual) 14H, Eosinophils % (Manual) 5H, Basophils % ( Manual) 0, Band Neutrophils 0, Platelet Estimate Adequate, Platelet Morphology Normal, Sodium Level 138, Potassium Level 2.4*L, Chloride Level 102, Carbon Dioxide Level 22, Anion Gap 14, Blood Urea Nitrogen 12, Creatinine 0.6, Estimat Glomerular Filtration Rate > 60, Glucose Level 152H, Calcium Level 8.0L, Triglycerides Level 104, Cholesterol Level 120, LDL Cholesterol 90, HDL Cholesterol 22L, Cholesterol/HDL Ratio 5.5H, Amylase Level 209H, Lipase > 2000H , Immunoglobulin G [Pending], Immunoglobulin G1 [Pending], Immunoglobulin G2 [ Pending], Immunoglobulin G3 [Pending], Immunoglobulin G4 [Pending], Anti- Nuclear Antibody Screen [Pending] Current Medications Medications (Trade) Dose Ordered Sig/Jatinder Route PRN Reason Start Time Stop Time Status Last Admin Dose Admin Acetaminophen (Tylenol) 325 mg Q6H PRN ORAL Mild Pain/Temp > 100.5 03/03/18 11:15 04/02/18 11:14 03/03/18 13:14 Barium Sulfate (Readi-Cat 2) 450 ml NOW PRN ORAL Radiology Procedure 03/04/18 09:15 03/06/18 09:12 Dextrose (Dextrose 50%) 25 ml Q30M PRN IV Hypoglycemia 03/01/18 21:15 03/31/18 09:14 Dextrose (Dextrose 50%) 50 ml Q30M PRN IV Hypoglycemia 03/01/18 21:15 03/31/18 09:14 Insulin Aspart (NovoLOG) BEFORE MEALS AND HS SUBQ 03/02/18 06:30 03/31/18 11:29 03/04/18 11:25 Iopamidol (Isovue-300 100ml) 100 ml NOW PRN INJ Radiology Procedure 03/04/18 09:15 03/04/18 23:59 Lorazepam (Ativan 2mg/ml 1ml) 0.5 mg Q4H PRN IV For Anxiety 03/01/18 22:00 03/06/18 17:59 Morphine Sulfate (Morphine Sulfate) 1 mg Q4H PRN IVP PAIN 1-3 03/01/18 22:00 03/06/18 17:59 03/04/18 10:09 Ondansetron HCl (Zofran) 4 mg Q6H PRN IVP Nausea & Vomiting 03/02/18 02:00 03/29/18 19:59 Pantoprazole (Protonix) 40 mg ACBREAKFAST ORAL 03/04/18 06:30 04/03/18 06:29 03/04/18 06:01 Tramadol HCl (Ultram) 50 mg Q8H PRN ORAL Moderate Pain (Pain Scale 4-6) 03/03/18 11:15 03/10/18 11:14 Mykel Gonzalez MD Mar 04, 2018 14:25
--- NOTE | 2018-03-04 14:57 | General Progress Note ---
Assessment/Plan Status: stable Assessment/Plan # Elevated tumor markers. CEA at 5.6, CA19-9 at 71 --> CT AP reviewed >> Very questionable slight prominence and indistinctness to the pancreatic head neck junction; of doubtful significance but could represent very early pancreatitis if real. --> unlikley malignancy --> trend as outpatient --> Outpatient EGD/Colonoscopy # Thrombocytopenia. Plt count of 84k on admission. Currently at 237 --> Improved/Resolved. # Anemia, mild. Current hgb > 13, no w/u required at this time. --> Cont to monitor for stability. # Diabetic ketoacidosis. --> Cont to monitor BS levels. --> Cont on insulin # Severe protein-calorie malnutrition. --> Nutrition is following, appreciate recs. # Pancreatitis. GI is following, appreciate recs --> Outpatient EGD/Colonoscopy GREATLY APPRECIATE CONSULTATION. Subjective Date patient seen: Mar 04, 2018 Hematologic/Lymphatic: Reports: anemia Allergies: Coded Allergies: No Known Allergies (Unverified , 02/27/18) All Systems: reviewed and negative except above Subjective Pt awake and alert. No acute events. H/H stable. Objective Last 24 Hour Vital Signs Date Time Temp Pulse Resp B/P (MAP) Pulse Ox O2 Delivery O2 Flow Rate FiO2 03/04/18 12:00 98.8 83 19 129/79 (96) 97 03/04/18 10:39 98.1 03/04/18 08:20 Room Air 03/04/18 08:00 98.1 92 21 129/90 (103) 97 03/04/18 07:58 93 03/04/18 04:00 80 03/04/18 04:00 98.7 90 18 149/84 (105) 97 03/04/18 00:00 98.1 76 19 136/91 (106) 98 03/04/18 00:00 77 03/03/18 21:00 Room Air 03/03/18 20:00 97 03/03/18 20:00 99.1 86 18 119/77 (91) 99 03/03/18 16:00 73 03/03/18 16:00 99.8 88 19 137/85 (102) 97 Intake and Output 03/03/18 03/04/18 19:00 07:00 Intake Total 360 ml 700 ml Output Total 1000 ml 800 ml Balance -640 ml -100 ml Intake Oral 360 ml IV Total 700 ml Output Urine Total 1000 ml 800 ml # Voids 2 # Bowel Movements 4 3 Laboratory Tests 03/04/18 06:30: White Blood Count 7.6, Red Blood Count 4.17L, Hemoglobin 12.8L, Hematocrit 37.6L , Mean Corpuscular Volume 90, Mean Corpuscular Hemoglobin 30.7, Mean Corpuscular Hemoglobin Concent 34.0, Red Cell Distribution Width 13.2, Platelet Count 289, Mean Platelet Volume 5.8L, Neutrophils (%) (Auto) , Lymphocytes (%) ( Auto) , Monocytes (%) (Auto) , Eosinophils (%) (Auto) , Basophils (%) (Auto) , Differential Total Cells Counted 100, Neutrophils % (Manual) 63, Lymphocytes % ( Manual) 18L, Monocytes % (Manual) 14H, Eosinophils % (Manual) 5H, Basophils % ( Manual) 0, Band Neutrophils 0, Platelet Estimate Adequate, Platelet Morphology Normal, Sodium Level 138, Potassium Level 2.4*L, Chloride Level 102, Carbon Dioxide Level 22, Anion Gap 14, Blood Urea Nitrogen 12, Creatinine 0.6, Estimat Glomerular Filtration Rate > 60, Glucose Level 152H, Calcium Level 8.0L, Triglycerides Level 104, Cholesterol Level 120, LDL Cholesterol 90, HDL Cholesterol 22L, Cholesterol/HDL Ratio 5.5H, Amylase Level 209H, Lipase > 2000H , Immunoglobulin G [Pending], Immunoglobulin G1 [Pending], Immunoglobulin G2 [ Pending], Immunoglobulin G3 [Pending], Immunoglobulin G4 [Pending], Anti- Nuclear Antibody Screen [Pending] Height (Feet): 5 Height (Inches): 7.00 Weight (Pounds): 178 Objective PHYSICAL EXAMINATION: GENERAL: This is a well-developed male, confused. VITAL SIGNS: Have been reviewed. HEENT: Otherwise negative. NECK: Supple. LUNGS: Clear overall CARDIAC: slightly tachycardic ABDOMEN: Minimally tender in the epigastrium, otherwise negative. No distention. EXTREMITIES: No edema. Kei Son MD Mar 04, 2018 14:57
[2018-03-04 15:42] LABS: ANION GAP 12 mmol/L (5-15); BLOOD UREA NITROGEN 15 mg/dL (7-18); CARBON DIOXIDE 20 MMOL/L (21-32); CHLORIDE 103 MMOL/L (98-107); CREATININE 0.7 MG/DL (0.55-1.30); POTASSIUM 3.5 MMOL/L (3.5-5.1); SODIUM 135 MMOL/L (136-145)
[2018-03-04 16:00] VITALS: BP 132/83
[2018-03-04 20:00] VITALS: BP 129/82
[2018-03-05] VITALS: BP 122/72
[2018-03-05 04:00] VITALS: BP 137/87
[2018-03-05] MEDS: NovoLOG Insulin Flexpen SUBQ SCH ×4 (06:13→22:55)
--- NOTE | 2018-03-05 06:48 | General Progress Note ---
Assessment/Plan Status: stable Assessment/Plan # Elevated tumor markers. CEA at 5.6, CA19-9 at 71 --> CT AP reviewed >> Very questionable slight prominence and indistinctness to the pancreatic head neck junction; of doubtful significance but could represent very early pancreatitis if real. --> unlikely malignancy --> trend as outpatient --> Outpatient EGD/Colonoscopy # Thrombocytopenia. Plt count of 84k on admission. Currently at 237 --> Improved/Resolved. # Anemia, mild. Current hgb > 13, no w/u required at this time. --> Cont to monitor for stability. # Diabetic ketoacidosis. --> Cont to monitor BS levels. --> Cont on insulin # Severe protein-calorie malnutrition. --> Nutrition is following, appreciate recs. # Pancreatitis. GI is following, appreciate recs --> Outpatient EGD/Colonoscopy GREATLY APPRECIATE CONSULTATION. Subjective Date patient seen: Mar 05, 2018 Hematologic/Lymphatic: Reports: anemia Allergies: Coded Allergies: No Known Allergies (Unverified , 02/27/18) All Systems: reviewed and negative except above Subjective Pt awake and alert. No acute events. H/H stable. VS stable. Objective Last 24 Hour Vital Signs Date Time Temp Pulse Resp B/P (MAP) Pulse Ox O2 Delivery O2 Flow Rate FiO2 03/05/18 04:00 76 03/05/18 04:00 97.9 89 19 137/87 (104) 97 03/05/18 00:00 78 03/05/18 00:00 85 03/05/18 00:00 96.6 77 18 122/72 (89) 97 03/04/18 20:58 Room Air 03/04/18 20:00 78 03/04/18 20:00 97.9 89 18 129/82 (98) 97 03/04/18 16:00 98.6 87 21 132/83 (99) 97 03/04/18 15:17 84 03/04/18 12:00 98.8 83 19 129/79 (96) 97 03/04/18 11:57 82 03/04/18 10:39 98.1 03/04/18 08:20 Room Air 03/04/18 08:00 98.1 92 21 129/90 (103) 97 03/04/18 07:58 93 Intake and Output 03/04/18 03/05/18 19:00 07:00 Intake Total 860 ml Output Total 1000 ml 900 ml Balance -140 ml -900 ml Intake Oral 860 ml Output Urine Total 1000 ml 900 ml # Voids 1 # Bowel Movements 8 3 Laboratory Tests 03/04/18 15:05: Sodium Level 135L, Potassium Level 3.5, Chloride Level 103, Carbon Dioxide Level 20L, Anion Gap 12, Blood Urea Nitrogen 15, Creatinine 0.7, Estimat Glomerular Filtration Rate > 60, Glucose Level 174H, Calcium Level 8.0L Height (Feet): 5 Height (Inches): 7.00 Weight (Pounds): 179 Objective PHYSICAL EXAMINATION: GENERAL: This is a well-developed male, confused. VITAL SIGNS: Have been reviewed. HEENT: Otherwise negative. NECK: Supple. LUNGS: Clear overall CARDIAC: slightly tachycardic ABDOMEN: Minimally tender in the epigastrium, otherwise negative. No distention. EXTREMITIES: No edema. Kei Son MD Mar 05, 2018 06:48
[2018-03-05 07:15] LABS: EOSINOPHILS % (AUTO) 2.3 % (0.0-3.0); HEMATOCRIT 39.2 % (42.0-52.0); HEMOGLOBIN 13.3 G/DL (14.2-18.0); LYMPHOCYTES % (AUTO) 17.7 % (20.0-45.0); MEAN CORPUSCULAR VOLUME 90 FL (80-99); MONOCYTES % (AUTO) 17.3 % (1.0-10.0); NEUTROPHILS % (AUTO) 61.8 % (45.0-75.0); PLATELET COUNT 336 K/UL (150-450); RED BLOOD COUNT 4.35 M/UL (4.70-6.10); RED CELL DISTRIBUTION WIDTH 13.5 % (11.6-14.8); WHITE BLOOD COUNT 7.2 K/UL (4.8-10.8)
[2018-03-05 07:28] LABS: ANION GAP 15 mmol/L (5-15); BLOOD UREA NITROGEN 13 mg/dL (7-18); CALCIUM 8.2 MG/DL (8.5-10.1); CARBON DIOXIDE 22 MMOL/L (21-32); CHLORIDE 100 MMOL/L (98-107); CREATININE 0.6 MG/DL (0.55-1.30); SODIUM 137 MMOL/L (136-145)
[2018-03-05 08:00] VITALS: BP 126/90
--- NOTE | 2018-03-05 09:12 | General Progress Note ---
Assessment/Plan Assessment/Plan IMPRESSION: 1. Diabetic ketoacidosis. 2. Severe protein-calorie malnutrition. 3. Evidence of pancreatitis, med induced 4. Acute on chronic encephalopathy, not fully clarified. 5. Probable sepsis. 6. Abnormal liver enzymes. PLAN tolerating diet off antibiotics gi evaluation with elevated enzymes heme and gi clearance pending monitor blood sugars and proceed with dc planning impression, plan, and exam edited and reviewed in detail care discussed with RN Subjective Allergies: Coded Allergies: No Known Allergies (Unverified , 02/27/18) Subjective care noted and reviewed no pain Objective Last 24 Hour Vital Signs Date Time Temp Pulse Resp B/P (MAP) Pulse Ox O2 Delivery O2 Flow Rate FiO2 03/05/18 08:00 99.2 99 20 126/90 (102) 99 03/05/18 04:00 76 03/05/18 04:00 97.9 89 19 137/87 (104) 97 03/05/18 00:00 78 03/05/18 00:00 85 03/05/18 00:00 96.6 77 18 122/72 (89) 97 03/04/18 20:58 Room Air 03/04/18 20:00 78 03/04/18 20:00 97.9 89 18 129/82 (98) 97 03/04/18 16:00 98.6 87 21 132/83 (99) 97 03/04/18 15:17 84 03/04/18 12:00 98.8 83 19 129/79 (96) 97 03/04/18 11:57 82 03/04/18 10:39 98.1 Intake and Output 03/04/18 03/05/18 18:59 06:59 Intake Total 1560 ml Output Total 1000 ml 900 ml Balance 560 ml -900 ml Intake Oral 860 ml IV Total 700 ml Output Urine Total 1000 ml 900 ml # Voids 1 # Bowel Movements 8 3 Laboratory Tests 03/04/18 15:05: Sodium Level 135L, Potassium Level 3.5, Chloride Level 103, Carbon Dioxide Level 20L, Anion Gap 12, Blood Urea Nitrogen 15, Creatinine 0.7, Estimat Glomerular Filtration Rate > 60, Glucose Level 174H, Calcium Level 8.0L 03/05/18 06:00: Sodium Level 137, Potassium Level 3.0L, Chloride Level 100, Carbon Dioxide Level 22, Anion Gap 15, Blood Urea Nitrogen 13, Creatinine 0.6, Estimat Glomerular Filtration Rate > 60, Glucose Level 168H, Calcium Level 8.2L, White Blood Count 7.2, Red Blood Count 4.35L, Hemoglobin 13.3L, Hematocrit 39.2L, Mean Corpuscular Volume 90, Mean Corpuscular Hemoglobin 30.5, Mean Corpuscular Hemoglobin Concent 33.8, Red Cell Distribution Width 13.5, Platelet Count 336, Mean Platelet Volume 6.0L, Neutrophils (%) (Auto) 61.8, Lymphocytes (%) (Auto) 17.7L, Monocytes (%) (Auto) 17.3H, Eosinophils (%) (Auto) 2.3, Basophils (%) ( Auto) 1.0 Height (Feet): 5 Height (Inches): 7.00 Weight (Pounds): 179 Objective PHYSICAL EXAMINATION: GENERAL: This is a well-developed male, confused. HEENT: Otherwise negative. NECK: Supple. LUNGS: Clear overall CARDIAC: RRR ABDOMEN: tender in the epigastrium, otherwise negative. No distention. EXTREMITIES: No edema. Dontrell Rouse MD Mar 05, 2018 09:12
[2018-03-05 09:21] LABS: AMYLASE 206 U/L (25-115)
--- NOTE | 2018-03-05 11:07 | GI Progress Note ---
Assessment/Plan Problems: (1) Altered mental state ICD Codes: R41.82 - Altered mental status, unspecified SNOMED: 832693424 (2) Encephalopathy ICD Codes: G93.40 - Encephalopathy, unspecified SNOMED: 58523067 (3) Pancreatitis ICD Codes: K85.90 - Acute pancreatitis without necrosis or infection, unspecified SNOMED: 24532186 (4) Altered level of consciousness ICD Codes: R40.4 - Transient alteration of awareness SNOMED: 8699605 (5) Metabolic acidosis ICD Codes: E87.2 - Acidosis SNOMED: 20362311 (6) Acute sepsis ICD Codes: A41.9 - Sepsis, unspecified organism SNOMED: 62219728 (7) Pancreatitis ICD Codes: K85.90 - Acute pancreatitis without necrosis or infection, unspecified SNOMED: 93529012 Status: stable Status Narrative Discussed with Dr. Shay. Assessment/Plan CT AP reviewed >> Very questionable slight prominence and indistinctness to the pancreatic head neck junction; of doubtful significance but could represent very early pancreatitis if real. abdominal U/S reviewed >> no acute findings CA19, CEA elevation lipid panel WNL Given CTAP was performed without contract, the questionable prominence noted on the pancreatic head may of been from distortion >> fu CTAP with contrast >> will make patient NPO @ MN for possible EUS will add LEDA, IgG4 to r/o autoimmune pancreatitis possible stone that passed given now normal bilirubin levels will consider EUS pending work up adv diet as tolerated IV hydration fu labs outpatient EGD/colonoscopy The patient was seen and examined at bedside and all new and available data was reviewed in the patients chart. I agree with the above findings, impression and plan. (Patient seen earlier today. Signature stamp does not reflect patient encounter time.). - Mikel Shay MD Subjective Gastrointestinal/Abdominal: Reports: no symptoms Objective Last 24 Hour Vital Signs Date Time Temp Pulse Resp B/P (MAP) Pulse Ox O2 Delivery O2 Flow Rate FiO2 03/05/18 08:00 99.2 99 20 126/90 (102) 99 03/05/18 04:00 76 03/05/18 04:00 97.9 89 19 137/87 (104) 97 03/05/18 00:00 78 03/05/18 00:00 85 03/05/18 00:00 96.6 77 18 122/72 (89) 97 03/04/18 20:58 Room Air 03/04/18 20:00 78 03/04/18 20:00 97.9 89 18 129/82 (98) 97 03/04/18 16:00 98.6 87 21 132/83 (99) 97 03/04/18 15:17 84 03/04/18 12:00 98.8 83 19 129/79 (96) 97 03/04/18 11:57 82 Intake and Output 03/04/18 03/05/18 18:59 06:59 Intake Total 1560 ml Output Total 1000 ml 900 ml Balance 560 ml -900 ml Intake Oral 860 ml IV Total 700 ml Output Urine Total 1000 ml 900 ml # Voids 1 # Bowel Movements 8 3 Laboratory Tests Test 03/04/18 15:05 03/05/18 06:00 Sodium Level 135 MMOL/L (136-145) L 137 MMOL/L (136-145) Potassium Level 3.5 MMOL/L (3.5-5.1) 3.0 MMOL/L (3.5-5.1) L Chloride Level 103 MMOL/L (98-107) 100 MMOL/L (98-107) Carbon Dioxide Level 20 MMOL/L (21-32) L 22 MMOL/L (21-32) Anion Gap 12 mmol/L (5-15) 15 mmol/L (5-15) Blood Urea Nitrogen 15 mg/dL (7-18) 13 mg/dL (7-18) Creatinine 0.7 MG/DL (0.55-1.30) 0.6 MG/DL (0.55-1.30) Estimat Glomerular Filtration Rate > 60 mL/min (>60) > 60 mL/min (>60) Glucose Level 174 MG/DL (74-106) H 168 MG/DL (74-106) H Calcium Level 8.0 MG/DL (8.5-10.1) L 8.2 MG/DL (8.5-10.1) L White Blood Count 7.2 K/UL (4.8-10.8) Red Blood Count 4.35 M/UL (4.70-6.10) L Hemoglobin 13.3 G/DL (14.2-18.0) L Hematocrit 39.2 % (42.0-52.0) L Mean Corpuscular Volume 90 FL (80-99) Mean Corpuscular Hemoglobin 30.5 PG (27.0-31.0) Mean Corpuscular Hemoglobin Concent 33.8 G/DL (32.0-36.0) Red Cell Distribution Width 13.5 % (11.6-14.8) Platelet Count 336 K/UL (150-450) Mean Platelet Volume 6.0 FL (6.5-10.1) L Neutrophils (%) (Auto) 61.8 % (45.0-75.0) Lymphocytes (%) (Auto) 17.7 % (20.0-45.0) L Monocytes (%) (Auto) 17.3 % (1.0-10.0) H Eosinophils (%) (Auto) 2.3 % (0.0-3.0) Basophils (%) (Auto) 1.0 % (0.0-2.0) Amylase Level 206 U/L (25-115) H Lipase > 2000 U/L (73-393) H Height (Feet): 5 Height (Inches): 7.00 Weight (Pounds): 179 General Appearance: WD/WN, no apparent distress, alert Cardiovascular: normal rate Respiratory/Chest: normal breath sounds, no respiratory distress Abdominal Exam: normal bowel sounds, non tender, soft Extremities: non-tender Ann Mahan ROLLER REPAIRER Mar 05, 2018 11:07
[2018-03-05 12:00] VITALS: BP 140/89
[2018-03-05 16:00] VITALS: BP 132/89
--- NOTE | 2018-03-05 16:43 | Diagnostic Imaging Report ---
Clinical Indication: Abdominal pain Technique: Patient given oral contrast. IV administration nonionic contrast. Venous phase spiral acquisition obtained through the abdomen and pelvis. Multiplanar reconstructions were generated. Total dose length product 1743.58 mGycm. CTDIvol(s) 18.61,19.88 mGy. Dose reduction achieved using automated exposure control Comparison: 02/27/2018 noncontrast study. Also ultrasound of 02/28/2018 Findings: As previously, the liver is diffusely hypoattenuating, consistent with fatty change. No focal abnormality demonstrated. The gallbladder is contracted. No definite stones. No biliary ductal dilatation. The pancreas is equivocally slightly larger than on the previous study, and there is equivocal slight indistinctness to the fat immediately surrounding the pancreas. However, no significant peripancreatic phlegmon or fluid collections are demonstrated. The pancreas enhances normally. No focal abnormality. The spleen demonstrates capsular calcifications. The adrenals, kidneys are unremarkable. No retroperitoneal or mesenteric mass or adenopathy demonstrated. The bladder is empty, contains a Gill catheter. No pelvic mass or adenopathy. Normal appendix. There is equivocal mild wall thickening of the ascending colon, probably an artifact of under distention. There are a few colonic diverticula, predominantly proximally. No evidence of diverticulitis. Small fat-containing ventral hernias are again demonstrated. Normal caliber small bowel. Distal esophagus, stomach, duodenum are unremarkable. The lung bases demonstrate some very faint groundglass opacity posteriorly and medially bilaterally. Scattered foci of groundglass opacity are also seen elsewhere in the left lower lobe and inferior lingula. The bones are unremarkable. Impression: Mild enlargement of the pancreas with very slight infiltration of the immediate peripancreatic fat. This is new or increased from on the prior study This is consistent with laboratory and clinical findings of acute pancreatitis documented in the electronic medical record. No significant phlegmon, peripancreatic fluid collection noted. No evidence of necrosis Diffusely hypoattenuating liver, consistent with fatty change Equivocal mild descending colon wall thickening, probably an artifact of under distention but could represent mild colitis changes. Bilateral faint pulmonary parenchymal groundglass opacities, could represent early pulmonary edema or inflammatory changes Other findings as noted, including unusual splenic capsular calcifications, small fat-containing ventral hernias, Gill catheter The CT scanner at [facility] is accredited by the [employer] and the scans are performed using protocols designed to limit radiation exposure to as low as reasonably achievable to attain images of sufficient resolution adequate for diagnostic evaluation.
--- NOTE | 2018-03-05 17:32 | General Surgery Progress Note ---
General Surgery-Progress Note Subjective Additional Comments no acute events. improving. CT noted. GI note noted Objective Last 24 Hour Vital Signs Date Time Temp Pulse Resp B/P (MAP) Pulse Ox O2 Delivery O2 Flow Rate FiO2 03/05/18 12:00 99.3 88 20 140/89 (106) 99 03/05/18 09:00 Room Air 03/05/18 08:00 99.2 99 20 126/90 (102) 99 03/05/18 04:00 76 03/05/18 04:00 97.9 89 19 137/87 (104) 97 03/05/18 00:00 78 03/05/18 00:00 85 03/05/18 00:00 96.6 77 18 122/72 (89) 97 03/04/18 20:58 Room Air 03/04/18 20:00 78 03/04/18 20:00 97.9 89 18 129/82 (98) 97 I&O Intake and Output 03/04/18 03/05/18 19:00 07:00 Intake Total 860 ml Output Total 1000 ml 900 ml Balance -140 ml -900 ml Intake Oral 860 ml Output Urine Total 1000 ml 900 ml # Voids 1 # Bowel Movements 8 3 Dressing: other Wound: other Drains: other Cardiovascular: RSR Respiratory: clear Abdomen: soft, distended, non-tender, present bowel sounds Extremities: no tenderness, no cyanosis Laboratory Tests Test 03/05/18 06:00 White Blood Count 7.2 K/UL (4.8-10.8) Red Blood Count 4.35 M/UL (4.70-6.10) L Hemoglobin 13.3 G/DL (14.2-18.0) L Hematocrit 39.2 % (42.0-52.0) L Mean Corpuscular Volume 90 FL (80-99) Mean Corpuscular Hemoglobin 30.5 PG (27.0-31.0) Mean Corpuscular Hemoglobin Concent 33.8 G/DL (32.0-36.0) Red Cell Distribution Width 13.5 % (11.6-14.8) Platelet Count 336 K/UL (150-450) Mean Platelet Volume 6.0 FL (6.5-10.1) L Neutrophils (%) (Auto) 61.8 % (45.0-75.0) Lymphocytes (%) (Auto) 17.7 % (20.0-45.0) L Monocytes (%) (Auto) 17.3 % (1.0-10.0) H Eosinophils (%) (Auto) 2.3 % (0.0-3.0) Basophils (%) (Auto) 1.0 % (0.0-2.0) Sodium Level 137 MMOL/L (136-145) Potassium Level 3.0 MMOL/L (3.5-5.1) L Chloride Level 100 MMOL/L (98-107) Carbon Dioxide Level 22 MMOL/L (21-32) Anion Gap 15 mmol/L (5-15) Blood Urea Nitrogen 13 mg/dL (7-18) Creatinine 0.6 MG/DL (0.55-1.30) Estimat Glomerular Filtration Rate > 60 mL/min (>60) Glucose Level 168 MG/DL (74-106) H Calcium Level 8.2 MG/DL (8.5-10.1) L Amylase Level 206 U/L (25-115) H Lipase > 2000 U/L (73-393) H Plan Problems: (1) Acute sepsis Assessment & Plan: Noted to have dehydration metabolic acidosis UTI Pancreatitis Abnormal LFT's likely urosepsis -IV fluids -IV abx -trend labs -diet as tolerated will follow with recs. thank you (2) Pancreatitis Assessment & Plan: Pancreatitis possible med induced possible stone related possible EtOH related lipase still elevated. clinically resolved CT noted. EUS as per GI trend labs ivf diet after EUS tomorrow Jeff Rose Mar 05, 2018 17:32
[2018-03-05 20:00] VITALS: BP 134/82
[2018-03-06 04:00] VITALS: BP 148/97
[2018-03-06] MEDS: NovoLOG Insulin Flexpen SUBQ SCH ×3 (06:16→17:03)
--- NOTE | 2018-03-06 06:36 | General Progress Note ---
Assessment/Plan Status: stable Assessment/Plan # Elevated tumor markers. CEA at 5.6, CA19-9 at 71 --> CT AP reviewed >> Mild enlargement of the pancreas with very slight infiltration of the immediate peripancreatic fat. This is new or increased from on the prior study Diffusely hypoattenuating liver, consistent with fatty change --> unlikely malignancy --> trend as outpatient --> Outpatient EGD/Colonoscopy # Thrombocytopenia. Plt count of 84k on admission. Currently at 237 --> Improved/Resolved. # Anemia, mild. Current hgb > 13, no w/u required at this time. --> Cont to monitor for stability. # Diabetic ketoacidosis. --> Cont to monitor BS levels. --> Cont on insulin # Severe protein-calorie malnutrition. --> Nutrition is following, appreciate recs. # Pancreatitis. GI is following, appreciate recs --> Outpatient EGD/Colonoscopy GREATLY APPRECIATE CONSULTATION. Subjective Date patient seen: Mar 06, 2018 Hematologic/Lymphatic: Reports: anemia Allergies: Coded Allergies: No Known Allergies (Unverified , 02/27/18) All Systems: reviewed and negative except above Subjective Pt awake and alert. No acute events. H/H stable. CT abd/pelvis shows enlargement of pancreas when compared to previous study. Objective Last 24 Hour Vital Signs Date Time Temp Pulse Resp B/P (MAP) Pulse Ox O2 Delivery O2 Flow Rate FiO2 03/06/18 04:00 97.5 78 19 148/97 (114) 97 03/06/18 00:00 70 03/05/18 21:00 Room Air 03/05/18 20:00 80 03/05/18 20:00 98.2 93 20 134/82 (99) 94 03/05/18 16:00 98.4 90 20 132/89 (103) 97 03/05/18 16:00 79 03/05/18 12:00 84 03/05/18 12:00 99.3 88 20 140/89 (106) 99 03/05/18 09:00 Room Air 03/05/18 08:00 99.2 99 20 126/90 (102) 99 03/05/18 08:00 91 Intake and Output 03/05/18 03/06/18 19:00 07:00 Intake Total 630 ml Output Total 400 ml Balance 230 ml Intake Oral 630 ml Output Urine Total 400 ml # Bowel Movements 4 1 Height (Feet): 5 Height (Inches): 7.00 Weight (Pounds): 179 Objective PHYSICAL EXAMINATION: GENERAL: This is a well-developed male, confused. VITAL SIGNS: Have been reviewed. HEENT: Otherwise negative. NECK: Supple. LUNGS: Clear overall CARDIAC: slightly tachycardic ABDOMEN: Minimally tender in the epigastrium, otherwise negative. No distention. EXTREMITIES: No edema. Kei Son MD Mar 06, 2018 06:36
[2018-03-06 08:00] VITALS: BP 117/84
[2018-03-06 09:40] LABS: ANION GAP 13 mmol/L (5-15); BASOPHILS % (AUTO) 1.1 % (0.0-2.0); BLOOD UREA NITROGEN 11 mg/dL (7-18); CALCIUM 8.8 MG/DL (8.5-10.1); CARBON DIOXIDE 24 MMOL/L (21-32); CHLORIDE 100 MMOL/L (98-107); CREATININE 0.6 MG/DL (0.55-1.30); EOSINOPHILS % (AUTO) 1.8 % (0.0-3.0); HEMATOCRIT 42.4 % (42.0-52.0); HEMOGLOBIN 14.1 G/DL (14.2-18.0); LYMPHOCYTES % (AUTO) 14.4 % (20.0-45.0); MEAN CORPUSCULAR VOLUME 92 FL (80-99); MONOCYTES % (AUTO) 13.1 % (1.0-10.0); NEUTROPHILS % (AUTO) 69.6 % (45.0-75.0); PLATELET COUNT 379 K/UL (150-450); POTASSIUM 3.1 MMOL/L (3.5-5.1); RED BLOOD COUNT 4.62 M/UL (4.70-6.10); RED CELL DISTRIBUTION WIDTH 13.4 % (11.6-14.8); SODIUM 137 MMOL/L (136-145); WHITE BLOOD COUNT 8.2 K/UL (4.8-10.8)
[2018-03-06 12:00] VITALS: BP 118/79
--- NOTE | 2018-03-06 12:27 | GI Progress Note ---
Assessment/Plan Problems: (1) Altered mental state ICD Codes: R41.82 - Altered mental status, unspecified SNOMED: 191919253 (2) Encephalopathy ICD Codes: G93.40 - Encephalopathy, unspecified SNOMED: 82129002 (3) Pancreatitis ICD Codes: K85.90 - Acute pancreatitis without necrosis or infection, unspecified SNOMED: 83036097 (4) Altered level of consciousness ICD Codes: R40.4 - Transient alteration of awareness SNOMED: 2380258 (5) Metabolic acidosis ICD Codes: E87.2 - Acidosis SNOMED: 71525043 (6) Acute sepsis ICD Codes: A41.9 - Sepsis, unspecified organism SNOMED: 34868442 (7) Pancreatitis ICD Codes: K85.90 - Acute pancreatitis without necrosis or infection, unspecified SNOMED: 82848405 Status: stable Status Narrative Discussed with Dr. Shay. Assessment/Plan CT AP reviewed >> Very questionable slight prominence and indistinctness to the pancreatic head neck junction; of doubtful significance but could represent very early pancreatitis if real. abdominal U/S reviewed >> no acute findings CA19, CEA elevation IgG4 elevation lipid panel WNL LEDA WNL okay for DC per GI standpoint, follow up as outpatient for EUS and possible ERCP with biopsy for definitive diagnosis of autoimmune adv diet as tolerated IV hydration fu labs outpatient EGD/colonoscopy The patient was seen and examined at bedside and all new and available data was reviewed in the patients chart. I agree with the above findings, impression and plan. (Patient seen earlier today. Signature stamp does not reflect patient encounter time.). - Mikel Shay MD Subjective Gastrointestinal/Abdominal: Reports: no symptoms Objective Last 24 Hour Vital Signs Date Time Temp Pulse Resp B/P (MAP) Pulse Ox O2 Delivery O2 Flow Rate FiO2 03/06/18 09:00 Room Air 03/06/18 08:00 98.2 83 20 117/84 (95) 97 03/06/18 08:00 78 03/06/18 04:00 86 03/06/18 04:00 97.5 78 19 148/97 (114) 97 03/06/18 00:00 70 03/05/18 21:00 Room Air 03/05/18 20:00 80 03/05/18 20:00 98.2 93 20 134/82 (99) 94 03/05/18 16:00 98.4 90 20 132/89 (103) 97 03/05/18 16:00 79 Intake and Output 03/05/18 03/06/18 19:00 07:00 Intake Total 630 ml Output Total 400 ml Balance 230 ml Intake Oral 630 ml Output Urine Total 400 ml # Voids 2 # Bowel Movements 4 2 Laboratory Tests Test 03/06/18 07:05 White Blood Count 8.2 K/UL (4.8-10.8) Red Blood Count 4.62 M/UL (4.70-6.10) L Hemoglobin 14.1 G/DL (14.2-18.0) L Hematocrit 42.4 % (42.0-52.0) Mean Corpuscular Volume 92 FL (80-99) Mean Corpuscular Hemoglobin 30.6 PG (27.0-31.0) Mean Corpuscular Hemoglobin Concent 33.3 G/DL (32.0-36.0) Red Cell Distribution Width 13.4 % (11.6-14.8) Platelet Count 379 K/UL (150-450) Mean Platelet Volume 5.6 FL (6.5-10.1) L Neutrophils (%) (Auto) 69.6 % (45.0-75.0) Lymphocytes (%) (Auto) 14.4 % (20.0-45.0) L Monocytes (%) (Auto) 13.1 % (1.0-10.0) H Eosinophils (%) (Auto) 1.8 % (0.0-3.0) Basophils (%) (Auto) 1.1 % (0.0-2.0) Sodium Level 137 MMOL/L (136-145) Potassium Level 3.1 MMOL/L (3.5-5.1) L Chloride Level 100 MMOL/L (98-107) Carbon Dioxide Level 24 MMOL/L (21-32) Anion Gap 13 mmol/L (5-15) Blood Urea Nitrogen 11 mg/dL (7-18) Creatinine 0.6 MG/DL (0.55-1.30) Estimat Glomerular Filtration Rate > 60 mL/min (>60) Glucose Level 167 MG/DL (74-106) H Calcium Level 8.8 MG/DL (8.5-10.1) Height (Feet): 5 Height (Inches): 7.00 Weight (Pounds): 178 General Appearance: WD/WN, no apparent distress, alert Cardiovascular: normal rate Respiratory/Chest: normal breath sounds, no respiratory distress Abdominal Exam: normal bowel sounds, non tender, soft Extremities: normal range of motion, non-tender Ann Mahan NP Mar 06, 2018 12:27
--- NOTE | 2018-03-06 12:30 | Pulmonology Progress Note ---
Assessment/Plan Assessment/Plan Pulmonary Progress Note IMPRESSION: 1. Diabetic ketoacidosis. 2. Severe protein-calorie malnutrition. 3. Evidence of pancreatitis, med induced 4. Acute on chronic encephalopathy, not fully clarified. 5. Probable sepsis. 6. Abnormal liver enzymes. PLAN tolerating diet off antibiotics gi evaluation with elevated enzymes heme and gi clearance pending monitor blood sugars and proceed with dc planning impression, plan, and exam edited and reviewed in detail care discussed with RN Subjective Allergies: Coded Allergies: No Known Allergies (Unverified , 02/27/18) Subjective care noted and reviewed no pain Objective Vital Signs Noted Height (Feet): 5 Height (Inches): 7.00 Weight (Pounds): 179 PHYSICAL EXAMINATION: GENERAL: This is a well-developed male, confused. HEENT: Otherwise negative. NECK: Supple. LUNGS: Clear overall CARDIAC: RRR ABDOMEN: tender in the epigastrium, otherwise negative. No distention. EXTREMITIES: No edema. Laboratory Tests 03/04/18 15:05: Sodium Level 135L, Potassium Level 3.5, Chloride Level 103, Carbon Dioxide Level 20L, Anion Gap 12, Blood Urea Nitrogen 15, Creatinine 0.7, Estimat Glomerular Filtration Rate > 60, Glucose Level 174H, Calcium Level 8.0L 03/05/18 06:00: Sodium Level 137, Potassium Level 3.0L, Chloride Level 100, Carbon Dioxide Level 22, Anion Gap 15, Blood Urea Nitrogen 13, Creatinine 0.6, Estimat Glomerular Filtration Rate > 60, Glucose Level 168H, Calcium Level 8.2L, White Blood Count 7.2, Red Blood Count 4.35L, Hemoglobin 13.3L, Hematocrit 39.2L, Mean Corpuscular Volume 90, Mean Corpuscular Hemoglobin 30.5, Mean Corpuscular Hemoglobin Concent 33.8, Red Cell Distribution Width 13.5, Platelet Count 336, Mean Platelet Volume 6.0L, Neutrophils (%) (Auto) 61.8, Lymphocytes (%) (Auto) 17.7L, Monocytes (%) (Auto) 17.3H, Eosinophils (%) (Auto) 2.3, Basophils (%) ( Auto) 1.0 Subjective ROS Limited/Unobtainable: No Allergies: Coded Allergies: No Known Allergies (Unverified , 02/27/18) Objective Last 24 Hour Vital Signs Date Time Temp Pulse Resp B/P (MAP) Pulse Ox O2 Delivery O2 Flow Rate FiO2 03/06/18 12:00 98.2 85 22 118/79 (92) 97 03/06/18 09:00 Room Air 03/06/18 08:00 98.2 83 20 117/84 (95) 97 03/06/18 08:00 78 03/06/18 04:00 86 03/06/18 04:00 97.5 78 19 148/97 (114) 97 03/06/18 00:00 70 03/05/18 21:00 Room Air 03/05/18 20:00 80 03/05/18 20:00 98.2 93 20 134/82 (99) 94 03/05/18 16:00 98.4 90 20 132/89 (103) 97 03/05/18 16:00 79 Intake and Output 03/05/18 03/06/18 18:59 06:59 Intake Total 630 ml Output Total 400 ml Balance 230 ml Intake Oral 630 ml Output Urine Total 400 ml # Voids 2 # Bowel Movements 4 2 Laboratory Tests 03/06/18 07:05: White Blood Count 8.2, Red Blood Count 4.62L, Hemoglobin 14.1L, Hematocrit 42.4 , Mean Corpuscular Volume 92, Mean Corpuscular Hemoglobin 30.6, Mean Corpuscular Hemoglobin Concent 33.3, Red Cell Distribution Width 13.4, Platelet Count 379, Mean Platelet Volume 5.6L, Neutrophils (%) (Auto) 69.6, Lymphocytes ( %) (Auto) 14.4L, Monocytes (%) (Auto) 13.1H, Eosinophils (%) (Auto) 1.8, Basophils (%) (Auto) 1.1, Sodium Level 137, Potassium Level 3.1L, Chloride Level 100, Carbon Dioxide Level 24, Anion Gap 13, Blood Urea Nitrogen 11, Creatinine 0.6, Estimat Glomerular Filtration Rate > 60, Glucose Level 167H, Calcium Level 8.8 Current Medications Medications (Trade) Dose Ordered Sig/Jatinder Route PRN Reason Start Time Stop Time Status Last Admin Dose Admin Acetaminophen (Tylenol) 325 mg Q6H PRN ORAL Mild Pain/Temp > 100.5 03/03/18 11:15 04/02/18 11:14 03/03/18 13:14 Dextrose (Dextrose 50%) 25 ml Q30M PRN IV Hypoglycemia 03/01/18 21:15 03/31/18 09:14 Dextrose (Dextrose 50%) 50 ml Q30M PRN IV Hypoglycemia 03/01/18 21:15 03/31/18 09:14 Insulin Aspart (NovoLOG) BEFORE MEALS AND HS SUBQ 03/02/18 06:30 03/31/18 11:29 03/06/18 12:01 Lorazepam (Ativan 2mg/ml 1ml) 0.5 mg Q4H PRN IV For Anxiety 03/01/18 22:00 03/06/18 17:59 Morphine Sulfate (Morphine Sulfate) 1 mg Q4H PRN IVP PAIN 1-3 03/01/18 22:00 03/06/18 17:59 03/04/18 10:09 Ondansetron HCl (Zofran) 4 mg Q6H PRN IVP Nausea & Vomiting 03/02/18 02:00 03/29/18 19:59 Pantoprazole (Protonix) 40 mg ACBREAKFAST ORAL 03/04/18 06:30 04/03/18 06:29 03/06/18 06:13 Tramadol HCl (Ultram) 50 mg Q8H PRN ORAL Moderate Pain (Pain Scale 4-6) 03/03/18 11:15 03/10/18 11:14 Mykel Gonzalez MD Mar 06, 2018 12:30
--- NOTE | 2018-03-06 16:26 | General Surgery Progress Note ---
General Surgery-Progress Note Subjective Additional Comments no acute events. doing okay. no n/v/f/c. labs noted. Objective Last 24 Hour Vital Signs Date Time Temp Pulse Resp B/P (MAP) Pulse Ox O2 Delivery O2 Flow Rate FiO2 03/06/18 12:00 98.2 85 22 118/79 (92) 97 03/06/18 12:00 80 03/06/18 09:00 Room Air 03/06/18 08:00 98.2 83 20 117/84 (95) 97 03/06/18 08:00 78 03/06/18 04:00 86 03/06/18 04:00 97.5 78 19 148/97 (114) 97 03/06/18 00:00 70 03/05/18 21:00 Room Air 03/05/18 20:00 80 03/05/18 20:00 98.2 93 20 134/82 (99) 94 I&O Intake and Output 03/05/18 03/06/18 18:59 06:59 Intake Total 630 ml Output Total 400 ml Balance 230 ml Intake Oral 630 ml Output Urine Total 400 ml # Voids 2 # Bowel Movements 4 2 Cardiovascular: RSR Respiratory: clear Abdomen: soft, flat, non-tender, present bowel sounds Extremities: no tenderness, no cyanosis Laboratory Tests Test 03/06/18 07:05 White Blood Count 8.2 K/UL (4.8-10.8) Red Blood Count 4.62 M/UL (4.70-6.10) L Hemoglobin 14.1 G/DL (14.2-18.0) L Hematocrit 42.4 % (42.0-52.0) Mean Corpuscular Volume 92 FL (80-99) Mean Corpuscular Hemoglobin 30.6 PG (27.0-31.0) Mean Corpuscular Hemoglobin Concent 33.3 G/DL (32.0-36.0) Red Cell Distribution Width 13.4 % (11.6-14.8) Platelet Count 379 K/UL (150-450) Mean Platelet Volume 5.6 FL (6.5-10.1) L Neutrophils (%) (Auto) 69.6 % (45.0-75.0) Lymphocytes (%) (Auto) 14.4 % (20.0-45.0) L Monocytes (%) (Auto) 13.1 % (1.0-10.0) H Eosinophils (%) (Auto) 1.8 % (0.0-3.0) Basophils (%) (Auto) 1.1 % (0.0-2.0) Sodium Level 137 MMOL/L (136-145) Potassium Level 3.1 MMOL/L (3.5-5.1) L Chloride Level 100 MMOL/L (98-107) Carbon Dioxide Level 24 MMOL/L (21-32) Anion Gap 13 mmol/L (5-15) Blood Urea Nitrogen 11 mg/dL (7-18) Creatinine 0.6 MG/DL (0.55-1.30) Estimat Glomerular Filtration Rate > 60 mL/min (>60) Glucose Level 167 MG/DL (74-106) H Calcium Level 8.8 MG/DL (8.5-10.1) Plan Problems: (1) Acute sepsis Assessment & Plan: Noted to have dehydration metabolic acidosis UTI Pancreatitis Abnormal LFT's likely urosepsis -IV fluids -IV abx -trend labs -diet as tolerated will follow with recs. thank you (2) Pancreatitis Assessment & Plan: Pancreatitis possible med induced possible stone related possible EtOH related lipase still elevated. clinically resolved CA 19-[address] noted[address] EUS as per GI as an outpatient trend labs ivf diet discharge planning with outpatient GI follow up Jeff Rose Mar 06, 2018 16:26
[2018-03-06 16:27] VITALS: BP 132/77
--- NOTE | 2018-03-09 16:00 | Discharge Summary ---
Discharge Summary Discharge Summary _ DATE OF ADMISSION: 02/27/2018 DATE OF DISCHARGE: 03/06/2018 REASON FOR ADMISSION: 52 years old male with past medical history of CVA, presented to emergency department with altered level of consciousness. Laboratory workup revealed evidence of diabetes ketoacidosis with anion gap of 29, CO2- 8 , glucose -319 ; evidence of renal failure with BUN 52 ,creatinine 1.6. Elevated liver enzymes AST 180 ALT 82, total bilirubin 1.5. Lipase was over 2000. Troponin was negative. No leukocytosis, stable hemoglobin and hematocrit. Low platelets count - 91. ABG revealed metabolic acidosis with pH of 7.24 and CO2 -17. Sodium 125. Urinalysis revealed bacteria , but no polyuria. Serum alcohol level was negative. Ammonia level less than 10. CT of the head revealed no acute intracranial bleeding or mass effect. CT of the abdomen and pelvis without contrast revealed enlarged fatty fever. Local mild bladder wall thickening, probably artifact. Colonic diverticulosis. Multiply ventral hernias, no evidence of obstruction or strangulation. Slight prominence to the pancreatic neck junction and slight increased attenuation of the immediate peripancreatic fat. No focal pancreatic abnormalities. Splenic capsular calcification noted. Patient admitted with diagnoses of diabetic ketoacidosis, pancreatitis, acute on chronic encephalopathy, probable sepsis, abnormal liver enzymes, severe protein calorie malnutrition CONSULTANTS: GI specialist Dr. Shay machine straw hat presser/oncologist [facility]: Patient initially admitted to ICU for DKA management and started on insulin drip as per protocol. Patient was kept nothing by mouth. Patient started on the IV hydration and empiric antibiotics. Electrolytes were corrected as needed. nephrotoxics were avoided. When anion gap closed , IV insulin was discontinued , and patient was started on pre-meal short acting insulin as well as sliding scale of insulin as needed. Hemoglobin A1c 9.8, clearly not at goal. Patient will need further optimization of anti-glycemic regimen as outpatient and probably starting on long acting insulin. Patient was counseled on compliance with diabetic diet and medication regimen. Liver enzymes were closely monitored , LFT were trending down. LEDA was negative. IgG4 elevated. Abdominal ultrasound revealed no acute findings. It showed diffusely echogenic liver suggesting fatty infiltration. Renal parameters electrolytes were closely monitored. Electrolytes further corrected as needed and nephrotoxins were avoided. When creatinine stabilized and was down to normal, patient undergone CT of the abdomen with IV contrast, which revealed mild enlargement of the pancreas with slight infiltration of the immediate peripancreatic fat, finding was new or increased from the previous study. and likely consistent with the clinical findings of acute pancreatitis. No significant peripancreatic fluid collection, no evidence of necrosis. Diffusively hypoattenuating liver consistent with fatty changes . Lipase continued to be persistently elevated above 2000. Amylase elevated. Tumor markers reveal elevated CEA- 5.6 and CA-19-9 -71. Oncology consult was requested. Per oncologist, unlikely malignancy. Oncologist recommended to follow up as outpatient and consider outpatient EGD and colonoscopy. Patient initially showed thrombocytopenia with platelet counts of 91 ' platelet count on improved and prior to discharge 317 . Dietary recommendations implemented in plan of care. Blood culture were negative, urine culture revealed mixed gram-positive organism. No further antibiotics. GI specialist closely followed. Pancreatitis probably mediation induced , possibly autoimmune ( elevated IgG4) , further workbox required as outpatient. Pancreatitis could be also due to passed stone, given normal bilirubin, But lipase was not trending down. Lipid panel was stable, TSH WNL. Pancreatitis induced by severe triglyceridemia was ruled out. Pancreatitis could be also alcohol related, but alcohol level initially was negative. Blood sugar was closely monitored and remained stable. Patient started on diet and was able to tolerate it. Symptomatic treatment provided. Surgeon followed , per surgeon no surgical intervention was necessary at this time. GI cleared for discharge and recommended outpatient endoscopic ultrasound and possible ERCP with biopsy for definite diagnosis and to follow up on possible autoimmune disease. Outpatient EGD and colonoscopy recommended as well. Mental status back to baseline . Acute encephalopathy was likely due to diabetic ketoacidosis, resolved. Patient was clinically stabilized and ready for discharge. 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 DISCHARGE INSTRUCTIONS: Patient was discharged home Follow up with primary care provider in one week. Follow up with GI specialist as outpatient for further workup I have been assigned to dictate discharge summary for this account. I was not involved in the patient's management. Ibis Bustamante NP Mar 09, 2018 16:00
== END 2018-03-06 18:49 | disposition home or self-care (01) | DRG 720 ==
LOC: EDBD 13:02 → EDBEDREQSVC 14:57 → EDBEDREQTM 14:57 → EDBEDREQ 14:57 → EMR 15:21 → EDBEDREQ 16:36 → ICU 17:30 → 2E 03-01 21:06
DX: A41.9 Sepsis, unspecified organism (principal); G93.41 Metabolic encephalopathy; E43 Unspecified severe protein-calorie malnutrition; E11.10 Type 2 diabetes mellitus with ketoacidosis without coma; K85.30 Drug induced acute pancreatitis without necrosis or infection; N17.9 Acute kidney failure, unspecified; T50.905A Adverse effect of unspecified drugs, medicaments and biological substances, initial encounter; K76.0 Fatty (change of) liver, not elsewhere classified; Z86.73 Personal history of transient ischemic attack (TIA), and cerebral infarction without residual deficits; K57.90 Diverticulosis of intestine, part unspecified, without perforation or abscess without bleeding; K43.9 Ventral hernia without obstruction or gangrene; Z68.27 Body mass index [BMI] 27.0-27.9, adult
CPT/HCPCS: 36415; 36600; 70450; 71045; 74176; 74177; 76700; 80048; 80053; 80061; 80329; 81001; 82140; 82150; 82248; 82378; 82784; 82787; 82803; 82962; 83036; 83605; 83690; 84443; 84484; 85007; 85025; 85610; 85651; 85730; 86039; 86140; 86850; 86900; 86901; 87040; 87081; 87086; 93005; 96361; 96365; 96366; 96375; 99291; J1815; J8499